=== PATIENT | female | born 1965 ===

== ENCOUNTER 2017-11-02 10:22 | Inpatient (IN) | payer OTHER ==
--- NOTE | 2017-11-02 10:50 | C.PDOC ---
History Of Present Illness <[place] - Last Filed: 11/02/17 11:08> <Josep Finney - Last Filed: 11/02/17 15:50> 52 y/o female with hx of chronic pain and substance abuse presenting via ems after patient was found down. 2 doses of narcan were given by ems. She is in ED reporting that 2 hours prior to arrival she took 3x 5/325mg percocet and 3x 2mg xanax. She is lethargic and does not communicate well but does follow directions and answers some questions. ([place]) <[place] - Last Filed: 11/02/17 11:08> <Josep Finney - Last Filed: 11/02/17 15:50> Time Seen by Provider: 11/02/17 10:26 Chief Complaint (Nursing): Substance Abuse Past Medical History - Medical History PMH: Anxiety, Arthritis, Asthma, Emphysema, HTN, Hypercholesterolemia, Hypothyroidism Family History: States: Unknown Family Hx - Social History Hx Tobacco Use: No Hx Alcohol Use: Yes (quit 2008) Hx Substance Use: Yes - Immunization History Hx Tetanus Toxoid Vaccination: No Hx Influenza Vaccination: Yes Hx Pneumococcal Vaccination: Yes <[place] - Last Filed: 11/02/17 11:08> Vital Signs: Last Vital Signs Temp 97.6 F 11/02/17 10:28 Pulse 93 H 11/02/17 12:52 Resp 10 L 11/02/17 12:52 BP 90/45 L 11/02/17 12:52 Pulse Ox 94 L 11/02/17 12:52 - [facility] Procedures CLOSED [ENDOSCOPIC] BIOPSY OF LARYNX (03/06/02) CONTINUOUS INVASIVE MECHANICAL VENTILATION <96 CONSEC HRS (05/03/15) INSERT ENDOTRACHEAL TUBE (05/03/15) Review Of Systems Review Of Systems: ROS cannot be obtained secondary to pt's inabilty to answer questions. (she is lethargic, difficult to arouse and does not cooperate with questioning) <[place] - Last Filed: 11/02/17 11:08> Physical Exam - Physical Exam Skin: Warm, Dry Head: Atraumatic, Normacephalic Eye(s): bilateral: Other (fixed miosis, not reactive to light) Throat: No Erythema, No Exudate Cardiovascular: Rhythm Regular, Murmur (+3 holosystolic) Respiratory: Normal Breath Sounds, Other (rapid breath) Gastrointestinal/Abdominal: Soft, No Tenderness Extremity: No Tenderness, No Pedal Edema, No Calf Tenderness Neurological/Psych: Other (lethargic) Gait: Unable To Assess <[place] - Last Filed: 11/02/17 11:08> ED Course And Treatment O2 Sat by Pulse Oximetry: 94 <[place] - Last Filed: 11/02/17 11:08> - Laboratory Results Result Diagrams: 11/02/17 11:40 11/02/17 11:40 <Josep Finney - Last Filed: 11/02/17 15:50> Central Line Placement - Central Line Placement Central Line Placement: Right: Femoral The Area Was Thoroughly Prepared With: Chlorhexidine Area Was Locally Anesthetized With: Lidocaine 1% Procedure: Triple Lumen, Placed Using Standard Seldinger Technique, Catheter Was Sewn Into Place, Sterile Dressing Placed Over Line, Procedure Tolerated Well <Josep iFnney - Last Filed: 11/02/17 15:50> Medical Decision Making <[place] - Last Filed: 11/02/17 11:08> <Josep Finney - Last Filed: 11/02/17 15:50> Medical Decision Making: Patient has a hx of substance abuse. CBC, CMP, JOSELYN, UA, UDS, CXR, EKG, acetominophen, and salicylate levels were ordered. EKG was NSR. Patient was hypotensive 70/40. 1L bolus NS was started. ([place]) Disposition - Disposition Disposition Time: 11:09 <[place] - Last Filed: 11/02/17 11:08> <Josep Finney - Last Filed: 11/02/17 15:50> - Disposition Condition: STABLE Forms: [facility] ([place]) - Clinical Impression Clinical Impression: Drug abuse
[2017-11-02] MEDS ORDERED: Sodium Chloride 0.9% 1,000 ML IV ONE (11:02)
[2017-11-02 11:06] VITALS: BMI 31.8
[2017-11-02] MEDS ORDERED: Sodium Chloride 0.9% 1,000 ML ONE (11:24)
[2017-11-02] MEDS ORDERED: Naloxone 0.4 mg/ml Inj (Adult) ONE ×2 (11:25→16:28)
[2017-11-02] MEDS ORDERED: Naloxone 0.4 mg/ml Inj (Adult) IVP ONE ×6 (11:30→19:59)
--- NOTE | 2017-11-02 11:33 | RAD ---
HISTORY: substance abuse od COMPARISON: Chest x-ray performed 11/02/15 TECHNIQUE: Chest, one view. FINDINGS: Examination limited by habitus and hypoinflation. LUNGS: Hypoinflation. No focal consolidation. Please note that chest x-ray has limited sensitivity for the detection of pulmonary masses. PLEURA: No significant pleural effusion identified. No definite pneumothorax . CARDIOVASCULAR: Heart size appears within normal limits. Prominence of the mediastinum may be exaggerated by patient obliquity and tortuous vasculature. OSSEOUS STRUCTURES: Degenerative changes. VISUALIZED UPPER ABDOMEN: Unremarkable. OTHER FINDINGS: None. IMPRESSION: Prominence of the mediastinum may be exaggerated by patient obliquity and tortuous vasculature. Hypoinflation.
[2017-11-02 11:45] LABS: BASO # 0.1 K/uL (0.0-0.2); BASO % 0.3 % (0.0-2.0); EOS % 0.1 % (0.0-4.0); LYMPH # 1.6 K/uL (1.0-4.3); LYMPH % 5.7 % (20.0-40.0); MEAN CORPUSCULAR HEMOGLOBIN 29.9 pg (27.0-31.0); MEAN CORPUSCULAR HGB CONC 32.6 g/dL (33.0-37.0); MEAN PLATELET VOLUME 9.5 fL (7.2-11.7); MONO # 1.5 K/uL (0.0-0.8); MONO % 5.4 % (0.0-10.0); NEUT # 24.6 K/uL (1.8-7.0); NEUT % 88.5 % (50.0-75.0); PLATELET COUNT 286 K/uL (130-400); RED CELL DISTRIBUTION WIDTH 14.9 % (11.5-14.5)
[2017-11-02 11:47] LABS: HEMOGLOBIN 11.7 g/dL (11.0-16.0); MEAN CELL VOLUME 91.9 fL (81.0-99.0); WHITE BLOOD COUNT 27.8 K/uL (4.8-10.8)
[2017-11-02 11:55] LABS: SALICYLATE < 1.0 mg/dL 1
[2017-11-02 12:11] LABS: CK-MB 0.89 ng/mL (0.0-3.38); TROPONIN I 0.031 ng/mL (0.00-0.120)
[2017-11-02 12:39] LABS: ALB/GLOB RATIO 1.1 (1.0-2.1); ALBUMIN 3.2 g/dL (3.5-5.0); CALCIUM 7.9 mg/dl (8.6-10.4)
[2017-11-02] MEDS ORDERED: Dextrose 50% SYRINGE Inj (50 ml) IV STA ×3 (12:39→15:02)
[2017-11-02] MEDS ORDERED: Dextrose 50% VIAL Inj (50 ml) IV ONE (12:42)
[2017-11-02 12:48] LABS: BANDS 5 % (0-2); LYMPHOCYTE 7 % (20-40); MONOCYTE 7 % (0-10); NEUTROPHIL 81 % (50-75); PLATELET ESTIMATE NORMAL (NORMAL); TOTAL CELLS COUNTED 100
[2017-11-02 12:49] LABS: ANISOCYTOSIS SLIGHT; HYPOCHROMIC SLIGHT; POIKILOCYTOSIS SLIGHT
[2017-11-02] MEDS ORDERED: Moxifloxacin IV 400mg/250ml NS 400 MG/250 ML BAG IVPB STA (13:59)
--- NOTE | 2017-11-02 15:03 | CT ---
PROCEDURE: CT HEAD WITHOUT CONTRAST. HISTORY: ams COMPARISON: Noncontrast head CT performed 08/07/15 TECHNIQUE: Axial computed tomography images were obtained through the head/brain without intravenous contrast. Radiation dose: Total exam DLP = 1604.17 mGy-cm. This CT exam was performed using one or more of the following dose reduction techniques: Automated exposure control, adjustment of the mA and/or kV according to patient size, and/or use of iterative reconstruction technique. FINDINGS: Streak artifact obscures evaluation of the skullbase. HEMORRHAGE: No intracranial hemorrhage. BRAIN: Diffuse atrophy with prominence of the ventricles and sulci noted. No mass effect or edema. The swann-white matter differentiation appears intact. VENTRICLES: No hydrocephalus. CALVARIUM: Unremarkable. PARANASAL SINUSES: Unremarkable as visualized. No significant inflammatory changes. MASTOID AIR CELLS: Unremarkable as visualized. No inflammatory changes. OTHER FINDINGS: None. IMPRESSION: Streak artifact obscures evaluation of the skullbase. No acute intracranial pathology identified.
[2017-11-02] MEDS ORDERED: Moxifloxacin IV 400mg/250ml NS 400 MG/250 ML BAG IVPB ONE (15:37)
[2017-11-02] MEDS ORDERED: Glucagon Recombinant 1 mg Inj IV STA (15:40)
[2017-11-02] MEDS ORDERED: Octreotide 500 mcg/ml Inj IV STA (15:40)
[2017-11-02 16:22] LABS: SQUAMOUS EPITHIAL < 1 /hpf (0-5); URINE BACTERIA MANY (<OCC); URINE BILIRUBIN NEGATIVE (NEGATIVE); URINE BLOOD NEGATIVE (NEGATIVE); URINE CLARITY Hazy (Clear); URINE COLOR Yellow (YELLOW); URINE GLUCOSE (UA) NORMAL (Normal); URINE LEUKOCYTE ESTERASE TRACE Leu/uL (Negative); URINE PROTEIN 2+ mg/dL (NEGATIVE); URINE UROBILINOGEN NORMAL mg/dL (0.2-1.0)
[2017-11-02 16:31] LABS: ARTERIAL BLOOD GAS HCO3 18.2 mmol/L (21-28); ARTERIAL BLOOD GAS O2 SAT 97.2 % (95-98); ARTERIAL BLOOD GAS PCO2 103 mm/Hg (35-45); ARTERIAL BLOOD GAS PO2 82 mm/Hg (80-100); ARTERIAL BLOOD GAS TCO2 28.6 mmol/L (22-28)
[2017-11-02 16:56] LABS: PROTHROMBIN TIME 11.4 SECONDS (9.7-12.2)
[2017-11-02 16:59] LABS: BARBITURATES, UR NEGATIVE (NEGATIVE); BENZODIAZEPINES, UR POSITIVE (NEGATIVE)
[2017-11-02 17:00] LABS: OPIATES, UR POSITIVE (NEGATIVE); PHENCYCLIDINE, UR NEGATIVE (NEGATIVE)
--- NOTE | 2017-11-02 17:35 | CARD ---
APPROVED REPORT EKG Measurement Heart [id number] OH 150P60 [id number] <Conclusion> Normal sinus rhythm Inferior infarct, age undetermined cannot be excluded Abnormal ECG
[2017-11-02] MEDS ORDERED: Sodium Chloride 0.9% 1,000 ML IV SCH ×2 (19:15→20:45)
--- NOTE | 2017-11-02 19:39 | CP.PCM.CON ---
History of Present Illness - History of Present Illness History of Present Illness: 52 y/o female with pmx of opoid overdose presents to [facility] in drowsy state. Patient had 0.4 mg of narcan pushed and patient woke up and requested to be go home. Patient reevalauted at 6:30PM and patient was found drowsy. Patient noted to have taken oxycodone. limited history. Review of Systems - Review of Systems Review of Systems: limited ROS as patient is drowsy Past Patient History - Tetanus Immunizations Tetanus Immunization: Unknown - Past Medical History & Family History Past Medical History?: Yes - Past Social History Smoking Status: Heavy Smoker > 10 Cigarettes Daily - CARDIAC Hx Hypercholesterolemia: Yes Hx Hypertension: Yes - PULMONARY Hx Asthma: Yes Hx Emphysema: Yes - ENDOCRINE/METABOLIC Hx Hypothyroidism: Yes - MUSCULOSKELETAL/RHEUMATOLOGICAL Hx Arthritis: Yes - PSYCHIATRIC Hx Anxiety: Yes Hx Substance Use: Yes - SURGICAL HISTORY Hx Surgeries: Yes Other/Comment: throat - ANESTHESIA Hx Anesthesia: Yes Hx Anesthesia Reactions: No (pt will not answer) Hx Malignant Hyperthermia: No Meds Allergies/Adverse Reactions: Allergies Allergy/AdvReac Type Severity Reaction Status Date / Time FISH Allergy Verified 11/02/15 10:58 NSAIDS (Non-Steroidal Allergy Verified 11/02/15 10:59 Anti-Inflamma Penicillins Allergy Verified 11/02/15 10:49 seafood Allergy Uncoded 11/02/15 10:59 shellfish Allergy Uncoded 11/02/15 10:59 vitamin d Allergy Uncoded 11/02/15 10:59 - Medications Medications: Current Medications Dextrose (Dextrose 5% In Water 1000 Ml) 1,000 mls @ 50 mls/hr IV .Q20H KATIE Sodium Chloride (Sodium Chloride 0.9%) 1,000 mls @ 50 mls/hr IV .Q20H KATIE Physical Exam - Head Exam Head Exam: ATRAUMATIC, NORMAL INSPECTION - Eye Exam Eye Exam: EOMI Pupil Exam: NORMAL ACCOMODATION - ENT Exam ENT Exam: Mucous Membranes Moist - Respiratory Exam Respiratory Exam: Clear to Auscultation Bilateral, NORMAL BREATHING PATTERN - Cardiovascular Exam Cardiovascular Exam: REGULAR RHYTHM, +S1, +S2, +S4 - GI/Abdominal Exam GI & Abdominal Exam: Normal Bowel Sounds, Soft - Extremities Exam Extremities exam: Positive for: normal inspection Results - Vital Signs Recent Vital Signs: Last Vital Signs Temp 97.7 F 11/02/17 18:50 Pulse 84 11/02/17 18:50 Resp 12 11/02/17 18:50 BP 105/59 L 11/02/17 18:50 Pulse Ox 94 L 11/02/17 18:50 - Labs Result Diagrams: 11/02/17 11:40 11/02/17 11:40 Labs: Laboratory Results - last 24 hr 11/02/17 11/02/17 11/02/17 10:42 11:40 11:40 WBC 27.8 H D RBC 3.90 Hgb 11.7 D Hct 35.9 MCV 91.9 D MCH 29.9 MCHC 32.6 L RDW 14.9 H Plt Count 286 MPV 9.5 Neut % (Auto) 88.5 H Lymph % (Auto) 5.7 L [place] % (Auto) 5.4 Eos % (Auto) 0.1 Baso % (Auto) 0.3 Neut # (Auto) 24.6 H Lymph # (Auto) 1.6 [place] # (Auto) 1.5 H Eos # (Auto) 0.0 Baso # (Auto) 0.1 Neutrophils % (Manual) 81 H Band Neutrophils % 5 H Lymphocytes % (Manual) 7 L Monocytes % (Manual) 7 Platelet Estimate Normal Hypochromasia (manual) Slight Poikilocytosis (manual Slight Anisocytosis (manual) Slight PT INR APTT Puncture Site pCO2 pO2 HCO3 ABG pH ABG Total CO2 ABG O2 Saturation ABG Base Excess Main Test ABG Potassium Glucose Lactate Liter Flow Crit Value Called To Crit Value Called By Crit Value Read Back Blood Gas Notified Time Sodium Potassium Chloride Carbon Dioxide Anion Gap BUN Creatinine Est GFR ( Amer) Est GFR (Non-Af Amer) POC Glucose (mg/dL) 247 H Random Glucose Lactic Acid Calcium Total Bilirubin AST ALT Alkaline Phosphatase Total Creatine Kinase CK-MB (Mass) Troponin I Total Protein Albumin Globulin Albumin/Globulin Ratio Arterial Blood Potassium Urine Color Urine Clarity Urine pH Ur Specific [place] Urine Protein Urine Glucose (UA) Urine Ketones Urine Blood Urine Nitrate Urine Bilirubin Urine Urobilinogen Ur Leukocyte Esterase Urine WBC (Auto) Urine RBC (Auto) Ur Squamous Epith Cells Urine Bacteria Hyaline Casts Salicylates < 1.0 Urine Opiates Screen Urine Methadone Screen Acetaminophen 12.0 Ur Barbiturates Screen Ur Phencyclidine Scrn Ur Amphetamines Screen U Benzodiazepines Scrn U Oth Cocaine Metabols U Cannabinoids Screen Alcohol, Quantitative 11/02/17 11/02/17 11/02/17 11:40 11:40 13:51 WBC RBC Hgb Hct MCV MCH MCHC RDW Plt Count MPV Neut % (Auto) Lymph % (Auto) [place] % (Auto) Eos % (Auto) Baso % (Auto) Neut # (Auto) Lymph # (Auto) [place] # (Auto) Eos # (Auto) Baso # (Auto) Neutrophils % (Manual) Band Neutrophils % Lymphocytes % (Manual) Monocytes % (Manual) Platelet Estimate Hypochromasia (manual) Poikilocytosis (manual Anisocytosis (manual) PT INR APTT Puncture Site pCO2 pO2 HCO3 ABG pH ABG Total CO2 ABG O2 Saturation ABG Base Excess Main Test ABG Potassium Glucose Lactate Liter Flow Crit Value Called To Crit Value Called By Crit Value Read Back Blood Gas Notified Time Sodium 144 Potassium 4.3 Chloride 110 H Carbon Dioxide 21 L Anion Gap 17 BUN 58 H Creatinine 3.1 H Est GFR ( Amer) 19 Est GFR (Non-Af Amer) 16 POC Glucose (mg/dL) 45 L Random Glucose 31 L* D Lactic Acid Calcium 7.9 L Total Bilirubin 0.2 AST 82 H ALT 50 Alkaline Phosphatase 82 Total Creatine Kinase 61 54 CK-MB (Mass) 0.89 Troponin I 0.0310 Total Protein 6.2 L Albumin 3.2 L Globulin 3.0 Albumin/Globulin Ratio 1.1 Arterial Blood Potassium Urine Color Urine Clarity Urine pH Ur Specific [place] Urine Protein Urine Glucose (UA) Urine Ketones Urine Blood Urine Nitrate Urine Bilirubin Urine Urobilinogen Ur Leukocyte Esterase Urine WBC (Auto) Urine RBC (Auto) Ur Squamous Epith Cells Urine Bacteria Hyaline Casts Salicylates Urine Opiates Screen Urine Methadone Screen Acetaminophen Ur Barbiturates Screen Ur Phencyclidine Scrn Ur Amphetamines Screen U Benzodiazepines Scrn U Oth Cocaine Metabols U Cannabinoids Screen Alcohol, Quantitative < 10 11/02/17 11/02/17 11/02/17 13:53 15:00 15:28 WBC RBC Hgb Hct MCV MCH MCHC RDW Plt Count MPV Neut % (Auto) Lymph % (Auto) [place] % (Auto) Eos % (Auto) Baso % (Auto) Neut # (Auto) Lymph # (Auto) [place] # (Auto) Eos # (Auto) Baso # (Auto) Neutrophils % (Manual) Band Neutrophils % Lymphocytes % (Manual) Monocytes % (Manual) Platelet Estimate Hypochromasia (manual) Poikilocytosis (manual Anisocytosis (manual) PT INR APTT Puncture Site pCO2 pO2 HCO3 ABG pH ABG Total CO2 ABG O2 Saturation ABG Base Excess Main Test ABG Potassium Glucose Lactate Liter Flow Crit Value Called To Crit Value Called By Crit Value Read Back Blood Gas Notified Time Sodium Potassium Chloride Carbon Dioxide Anion Gap BUN Creatinine Est GFR ( Amer) Est GFR (Non-Af Amer) POC Glucose (mg/dL) 50 L 69 Random Glucose Lactic Acid < 0.5 L Calcium Total Bilirubin AST ALT Alkaline Phosphatase Total Creatine Kinase CK-MB (Mass) Troponin I Total Protein Albumin Globulin Albumin/Globulin Ratio Arterial Blood Potassium Urine Color Urine Clarity Urine pH Ur Specific [place] Urine Protein Urine Glucose (UA) Urine Ketones Urine Blood Urine Nitrate Urine Bilirubin Urine Urobilinogen Ur Leukocyte Esterase Urine WBC (Auto) Urine RBC (Auto) Ur Squamous Epith Cells Urine Bacteria Hyaline Casts Salicylates Urine Opiates Screen Urine Methadone Screen Acetaminophen Ur Barbiturates Screen Ur Phencyclidine Scrn Ur Amphetamines Screen U Benzodiazepines Scrn U Oth Cocaine Metabols U Cannabinoids Screen Alcohol, Quantitative 11/02/17 11/02/17 11/02/17 16:03 16:03 16:10 WBC RBC Hgb Hct MCV MCH MCHC RDW Plt Count MPV Neut % (Auto) Lymph % (Auto) [place] % (Auto) Eos % (Auto) Baso % (Auto) Neut # (Auto) Lymph # (Auto) [place] # (Auto) Eos # (Auto) Baso # (Auto) Neutrophils % (Manual) Band Neutrophils % Lymphocytes % (Manual) Monocytes % (Manual) Platelet Estimate Hypochromasia (manual) Poikilocytosis (manual Anisocytosis (manual) PT INR APTT Puncture Site pCO2 pO2 HCO3 ABG pH ABG Total CO2 ABG O2 Saturation ABG Base Excess Main Test ABG Potassium Glucose Lactate Liter Flow Crit Value Called To Crit Value Called By Crit Value Read Back Blood Gas Notified Time Sodium Potassium Chloride Carbon Dioxide Anion Gap BUN Creatinine Est GFR ( Amer) Est GFR (Non-Af Amer) POC Glucose (mg/dL) 101 Random Glucose Lactic Acid Calcium Total Bilirubin AST ALT Alkaline Phosphatase Total Creatine Kinase CK-MB (Mass) Troponin I Total Protein Albumin Globulin Albumin/Globulin Ratio Arterial Blood Potassium Urine Color Yellow Urine Clarity Hazy Urine pH 5.0 Ur Specific [place] 1.017 Urine Protein 2+ H Urine Glucose (UA) Normal Urine Ketones Negative Urine Blood Negative Urine Nitrate Negative Urine Bilirubin Negative Urine Urobilinogen Normal Ur Leukocyte Esterase Trace Urine WBC (Auto) 25 H Urine RBC (Auto) 8 H Ur Squamous Epith Cells < 1 Urine Bacteria Many H Hyaline Casts 6-10 H Salicylates Urine Opiates Screen Positive H Urine Methadone Screen Negative Acetaminophen Ur Barbiturates Screen Negative Ur Phencyclidine Scrn Negative Ur Amphetamines Screen Negative U Benzodiazepines Scrn Positive H U Oth Cocaine Metabols Negative U Cannabinoids Screen Negative Alcohol, Quantitative 11/02/17 11/02/17 16:15 16:44 WBC RBC Hgb Hct MCV MCH MCHC RDW Plt Count MPV Neut % (Auto) Lymph % (Auto) [place] % (Auto) Eos % (Auto) Baso % (Auto) Neut # (Auto) Lymph # (Auto) [place] # (Auto) Eos # (Auto) Baso # (Auto) Neutrophils % (Manual) Band Neutrophils % Lymphocytes % (Manual) Monocytes % (Manual) Platelet Estimate Hypochromasia (manual) Poikilocytosis (manual Anisocytosis (manual) PT 11.4 INR 1.0 APTT 32 Puncture Site Lba pCO2 103 H* pO2 82 HCO3 18.2 L ABG pH 7.00 L* ABG Total CO2 28.6 H ABG O2 Saturation 97.2 ABG Base Excess -8.3 L Main Test N/a ABG Potassium 5.1 Glucose 115 H Lactate 0.6 L Liter Flow 4.0 Crit Value Called To [place] rn Crit Value Called By 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 vessel ordinary seaman Crit Value Read Back Y Blood Gas Notified Time 1630 Sodium 141.0 Potassium Chloride 111.0 H Carbon Dioxide Anion Gap BUN Creatinine Est GFR ( Amer) Est GFR (Non-Af Amer) POC Glucose (mg/dL) Random Glucose Lactic Acid Calcium Total Bilirubin AST ALT Alkaline Phosphatase Total Creatine Kinase CK-MB (Mass) Troponin I Total Protein Albumin Globulin Albumin/Globulin Ratio Arterial Blood Potassium 5.1 Urine Color Urine Clarity Urine pH Ur Specific [place] Urine Protein Urine Glucose (UA) Urine Ketones Urine Blood Urine Nitrate Urine Bilirubin Urine Urobilinogen Ur Leukocyte Esterase Urine WBC (Auto) Urine RBC (Auto) Ur Squamous Epith Cells Urine Bacteria Hyaline Casts Salicylates Urine Opiates Screen Urine Methadone Screen Acetaminophen Ur Barbiturates Screen Ur Phencyclidine Scrn Ur Amphetamines Screen U Benzodiazepines Scrn U Oth Cocaine Metabols U Cannabinoids Screen Alcohol, Quantitative Assessment & Plan - Assessment and Plan (Free Text) Assessment: opoid overdose: awakens to narcan push. Patient stated that she took oxycodone; however none taken since 9AM. This should ahve been metabolixe dout unless patient has constipation and has enterohepatic circulation. Patient will benefit from narcan ggt to keep RR >10 -COPD: continue bronchodilators -Sepsis: suspect 2nd aspiration, keep HOb >32, start vanco + zosyn -NPO -BGm q4hrs -IV D5NS -DVt/PUD ppx -CT head when able -utox, serum drug screen Patient will benefit from ICU level care. d/w nursing. f/u chemistry/mag/phos, serial lactic - Date & Time Date: 11/02/17 Time: 19:00
[2017-11-02 19:49] LABS: ARTERIAL BLOOD GAS HCO3 16.6 mmol/L (21-28); ARTERIAL BLOOD GAS O2 SAT 86.7 % (95-98); ARTERIAL BLOOD GAS PCO2 89 mm/Hg (35-45); ARTERIAL BLOOD GAS PH 7.03 (7.35-7.45); ARTERIAL BLOOD GAS PO2 45 mm/Hg (80-100); ARTERIAL BLOOD GAS TCO2 26.2 mmol/L (22-28)
[2017-11-02] MEDS ORDERED: DEXTROSE 5% IV SCH (20:00)
[2017-11-02] MEDS ORDERED: WATER IV SCH (20:00)
[2017-11-02] MEDS ORDERED: NALOXONE IV SCH (20:00)
[2017-11-02] MEDS ORDERED: Vancomycin 1 GM 1 GM/250 ML BAG IVPB STA (20:09)
[2017-11-02] MEDS ORDERED: Dextrose 5%/0.9% NS 1,000 ML IV ONE (20:15)
[2017-11-02 20:27] LABS: TROPONIN I 0.046 ng/mL (0.00-0.120)
--- NOTE | 2017-11-02 20:51 | CP.PCM.HP ---
History of Present Illness - History of Present Illness History of Present Illness: PGY1 H+P for Dr. Clifford History by patient's due to patient's mental status Patient is a 52 year old female with a past medical history of chronic pain, substance abuse, Anxiety, Arthritis, Asthma, Emphysema, HTN, Hypercholesterolemia and Hypothyroidism presenting to the emergency room after patient was found to not be breathing by her . Patient took her prescribed 3x 5/325mg percocet and 3x 2mg xanax this morning then went back to bed. When the went to wake patient up for her doctor's appointment, the found the patient with her tongue swallowed and starting to turn blue. The got a spoon and attempted to pull the tongue forward. He then called 911 and began to give rescue breaths. Upon arrival, ems gave patient 2 doses of narcan. Patient became slightly arousable but shortly fell back asleep. ROS is unattainable due to patient's mental status, currently only arousable to sternal rub. PMH: chronic pain, substance abuse, Anxiety, Arthritis, Asthma, Emphysema, HTN, Hypercholesterolemia and Hypothyroidism PSH: unknown Family: unknown Social: Per chart review, no tobacco, quit alcohol in 2008 Present on Admission - Present on Admission Any Indicators Present on Admission: No Review of Systems - Review of Systems Systems not reviewed;Unavailable: Altered Mental Status Past Patient History - Tetanus Immunizations Tetanus Immunization: Unknown - Past Medical History & Family History Past Medical History?: Yes - Past Social History Smoking Status: Former Smoker - CARDIAC Hx Hypercholesterolemia: Yes Hx Hypertension: Yes - PULMONARY Hx Asthma: Yes Hx Emphysema: Yes - ENDOCRINE/METABOLIC Hx Hypothyroidism: Yes - MUSCULOSKELETAL/RHEUMATOLOGICAL Hx Arthritis: Yes - PSYCHIATRIC Hx Substance Use: Yes - SURGICAL HISTORY Hx Surgeries: Yes Other/Comment: throat - ANESTHESIA Hx Anesthesia: Yes Hx Anesthesia Reactions: No (pt will not answer) Hx Malignant Hyperthermia: No Meds Allergies/Adverse Reactions: Allergies Allergy/AdvReac Type Severity Reaction Status Date / Time FISH Allergy Verified 11/02/15 10:58 NSAIDS (Non-Steroidal Allergy Verified 11/02/15 10:59 Anti-Inflamma Penicillins Allergy Verified 11/02/15 10:49 seafood Allergy Uncoded 11/02/15 10:59 shellfish Allergy Uncoded 11/02/15 10:59 vitamin d Allergy Uncoded 11/02/15 10:59 Physical Exam - Constitutional Appears: Confused, Other (Lethargic) - Head Exam Head Exam: ATRAUMATIC, NORMOCEPHALIC - Eye Exam Pupil Exam: Fixed, Miosis. absent: NORMAL ACCOMODATION, PERRL - Respiratory Exam Respiratory Exam: Clear to Auscultation Bilateral. absent: Accessory Muscle Use , Rales, Rhonchi, Wheezes, Respiratory Distress, NORMAL BREATHING PATTERN ( decreased resp rate) - Cardiovascular Exam Cardiovascular Exam: REGULAR RHYTHM, +S1, +S2, Systolic Murmur (holosystolic) - GI/Abdominal Exam GI & Abdominal Exam: Soft. absent: Distended, Firm, Guarding, Rigid - Extremities Exam Extremities exam: Positive for: pedal pulses present. Negative for: calf tenderness, pedal edema - Neurological Exam Neurological exam: Altered Additional comments: Lethargic. Only responsive to sternal rub. Patient quickly falls back asleep after sternal rub. - Skin Skin Exam: Dry, Warm Additional comments: no track romo seen. Results - Vital Signs Recent Vital Signs: Last Vital Signs Temp 97.5 F L 11/02/17 19:35 Pulse 77 11/02/17 19:35 Resp 16 11/02/17 20:15 BP 101/65 11/02/17 19:35 Pulse Ox 94 L 11/02/17 19:35 - Labs Result Diagrams: 11/02/17 11:40 11/02/17 11:40 Labs: Laboratory Results - last 24 hr 11/02/17 11/02/17 11/02/17 10:42 11:40 11:40 WBC 27.8 H D RBC 3.90 Hgb 11.7 D Hct 35.9 MCV 91.9 D MCH 29.9 MCHC 32.6 L RDW 14.9 H Plt Count 286 MPV 9.5 Neut % (Auto) 88.5 H Lymph % (Auto) 5.7 L Dade % (Auto) 5.4 Eos % (Auto) 0.1 Baso % (Auto) 0.3 Neut # (Auto) 24.6 H Lymph # (Auto) 1.6 Dade # (Auto) 1.5 H Eos # (Auto) 0.0 Baso # (Auto) 0.1 Neutrophils % (Manual) 81 H Band Neutrophils % 5 H Lymphocytes % (Manual) 7 L Monocytes % (Manual) 7 Platelet Estimate Normal Hypochromasia (manual) Slight Poikilocytosis (manual Slight Anisocytosis (manual) Slight PT INR APTT Puncture Site pCO2 pO2 HCO3 ABG pH ABG Total CO2 ABG O2 Saturation ABG Base Excess Main Test ABG Potassium Glucose Lactate Liter Flow Crit Value Called To Crit Value Called By Crit Value Read Back Blood Gas Notified Time Sodium Potassium Chloride Carbon Dioxide Anion Gap BUN Creatinine Est GFR ( Amer) Est GFR (Non-Af Amer) POC Glucose (mg/dL) 247 H Random Glucose Lactic Acid Calcium Total Bilirubin AST ALT Alkaline Phosphatase Ammonia Total Creatine Kinase CK-MB (Mass) Troponin I NT-Pro-B Natriuret Pep Total Protein Albumin Globulin Albumin/Globulin Ratio Arterial Blood Potassium Urine Color Urine Clarity Urine pH Ur Specific [place] Urine Protein Urine Glucose (UA) Urine Ketones Urine Blood Urine Nitrate Urine Bilirubin Urine Urobilinogen Ur Leukocyte Esterase Urine WBC (Auto) Urine RBC (Auto) Ur Squamous Epith Cells Urine Bacteria Hyaline Casts Salicylates < 1.0 Urine Opiates Screen Urine Methadone Screen Acetaminophen 12.0 Ur Barbiturates Screen Ur Phencyclidine Scrn Ur Amphetamines Screen U Benzodiazepines Scrn U Oth Cocaine Metabols U Cannabinoids Screen Alcohol, Quantitative 11/02/17 11/02/17 11/02/17 11:40 11:40 13:51 WBC RBC Hgb Hct MCV MCH MCHC RDW Plt Count MPV Neut % (Auto) Lymph % (Auto) Dade % (Auto) Eos % (Auto) Baso % (Auto) Neut # (Auto) Lymph # (Auto) Dade # (Auto) Eos # (Auto) Baso # (Auto) Neutrophils % (Manual) Band Neutrophils % Lymphocytes % (Manual) Monocytes % (Manual) Platelet Estimate Hypochromasia (manual) Poikilocytosis (manual Anisocytosis (manual) PT INR APTT Puncture Site pCO2 pO2 HCO3 ABG pH ABG Total CO2 ABG O2 Saturation ABG Base Excess Main Test ABG Potassium Glucose Lactate Liter Flow Crit Value Called To Crit Value Called By Crit Value Read Back Blood Gas Notified Time Sodium 144 Potassium 4.3 Chloride 110 H Carbon Dioxide 21 L Anion Gap 17 BUN 58 H Creatinine 3.1 H Est GFR ( Amer) 19 Est GFR (Non-Af Amer) 16 POC Glucose (mg/dL) 45 L Random Glucose 31 L* D Lactic Acid Calcium 7.9 L Total Bilirubin 0.2 AST 82 H ALT 50 Alkaline Phosphatase 82 Ammonia Total Creatine Kinase 61 54 CK-MB (Mass) 0.89 Troponin I 0.0310 NT-Pro-B Natriuret Pep Total Protein 6.2 L Albumin 3.2 L Globulin 3.0 Albumin/Globulin Ratio 1.1 Arterial Blood Potassium Urine Color Urine Clarity Urine pH Ur Specific [place] Urine Protein Urine Glucose (UA) Urine Ketones Urine Blood Urine Nitrate Urine Bilirubin Urine Urobilinogen Ur Leukocyte Esterase Urine WBC (Auto) Urine RBC (Auto) Ur Squamous Epith Cells Urine Bacteria Hyaline Casts Salicylates Urine Opiates Screen Urine Methadone Screen Acetaminophen Ur Barbiturates Screen Ur Phencyclidine Scrn Ur Amphetamines Screen U Benzodiazepines Scrn U Oth Cocaine Metabols U Cannabinoids Screen Alcohol, Quantitative < 10 11/02/17 11/02/17 11/02/17 13:53 15:00 15:28 WBC RBC Hgb Hct MCV MCH MCHC RDW Plt Count MPV Neut % (Auto) Lymph % (Auto) Dade % (Auto) Eos % (Auto) Baso % (Auto) Neut # (Auto) Lymph # (Auto) Dade # (Auto) Eos # (Auto) Baso # (Auto) Neutrophils % (Manual) Band Neutrophils % Lymphocytes % (Manual) Monocytes % (Manual) Platelet Estimate Hypochromasia (manual) Poikilocytosis (manual Anisocytosis (manual) PT INR APTT Puncture Site pCO2 pO2 HCO3 ABG pH ABG Total CO2 ABG O2 Saturation ABG Base Excess Main Test ABG Potassium Glucose Lactate Liter Flow Crit Value Called To Crit Value Called By Crit Value Read Back Blood Gas Notified Time Sodium Potassium Chloride Carbon Dioxide Anion Gap BUN Creatinine Est GFR ( Amer) Est GFR (Non-Af Amer) POC Glucose (mg/dL) 50 L 69 Random Glucose Lactic Acid < 0.5 L Calcium Total Bilirubin AST ALT Alkaline Phosphatase Ammonia Total Creatine Kinase CK-MB (Mass) Troponin I NT-Pro-B Natriuret Pep Total Protein Albumin Globulin Albumin/Globulin Ratio Arterial Blood Potassium Urine Color Urine Clarity Urine pH Ur Specific [place] Urine Protein Urine Glucose (UA) Urine Ketones Urine Blood Urine Nitrate Urine Bilirubin Urine Urobilinogen Ur Leukocyte Esterase Urine WBC (Auto) Urine RBC (Auto) Ur Squamous Epith Cells Urine Bacteria Hyaline Casts Salicylates Urine Opiates Screen Urine Methadone Screen Acetaminophen Ur Barbiturates Screen Ur Phencyclidine Scrn Ur Amphetamines Screen U Benzodiazepines Scrn U Oth Cocaine Metabols U Cannabinoids Screen Alcohol, Quantitative 11/02/17 11/02/17 11/02/17 16:03 16:03 16:10 WBC RBC Hgb Hct MCV MCH MCHC RDW Plt Count MPV Neut % (Auto) Lymph % (Auto) Dade % (Auto) Eos % (Auto) Baso % (Auto) Neut # (Auto) Lymph # (Auto) Dade # (Auto) Eos # (Auto) Baso # (Auto) Neutrophils % (Manual) Band Neutrophils % Lymphocytes % (Manual) Monocytes % (Manual) Platelet Estimate Hypochromasia (manual) Poikilocytosis (manual Anisocytosis (manual) PT INR APTT Puncture Site pCO2 pO2 HCO3 ABG pH ABG Total CO2 ABG O2 Saturation ABG Base Excess Main Test ABG Potassium Glucose Lactate Liter Flow Crit Value Called To Crit Value Called By Crit Value Read Back Blood Gas Notified Time Sodium Potassium Chloride Carbon Dioxide Anion Gap BUN Creatinine Est GFR ( Amer) Est GFR (Non-Af Amer) POC Glucose (mg/dL) 101 Random Glucose Lactic Acid Calcium Total Bilirubin AST ALT Alkaline Phosphatase Ammonia Total Creatine Kinase CK-MB (Mass) Troponin I NT-Pro-B Natriuret Pep Total Protein Albumin Globulin Albumin/Globulin Ratio Arterial Blood Potassium Urine Color Yellow Urine Clarity Hazy Urine pH 5.0 Ur Specific [place] 1.017 Urine Protein 2+ H Urine Glucose (UA) Normal Urine Ketones Negative Urine Blood Negative Urine Nitrate Negative Urine Bilirubin Negative Urine Urobilinogen Normal Ur Leukocyte Esterase Trace Urine WBC (Auto) 25 H Urine RBC (Auto) 8 H Ur Squamous Epith Cells < 1 Urine Bacteria Many H Hyaline Casts 6-10 H Salicylates Urine Opiates Screen Positive H Urine Methadone Screen Negative Acetaminophen Ur Barbiturates Screen Negative Ur Phencyclidine Scrn Negative Ur Amphetamines Screen Negative U Benzodiazepines Scrn Positive H U Oth Cocaine Metabols Negative U Cannabinoids Screen Negative Alcohol, Quantitative 11/02/17 11/02/17 11/02/17 16:15 16:44 19:45 WBC RBC Hgb Hct MCV MCH MCHC RDW Plt Count MPV Neut % (Auto) Lymph % (Auto) Dade % (Auto) Eos % (Auto) Baso % (Auto) Neut # (Auto) Lymph # (Auto) Dade # (Auto) Eos # (Auto) Baso # (Auto) Neutrophils % (Manual) Band Neutrophils % Lymphocytes % (Manual) Monocytes % (Manual) Platelet Estimate Hypochromasia (manual) Poikilocytosis (manual Anisocytosis (manual) PT 11.4 INR 1.0 APTT 32 Puncture Site Lba Rra pCO2 103 H* 89 H* pO2 82 45 L HCO3 18.2 L 16.6 L ABG pH 7.00 L* 7.03 L* ABG Total CO2 28.6 H 26.2 ABG O2 Saturation 97.2 86.7 L ABG Base Excess -8.3 L -9.2 L Main Test N/a Na ABG Potassium 5.1 7.1 H* Glucose 115 H 86 Lactate 0.6 L 0.4 L Liter Flow 4.0 2.0 Crit Value Called To Rica Portillo md icu Crit Value Called By 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 Crit Value Read Back Y Y Blood Gas Notified Time 1629 1947 Sodium 141.0 140.0 Potassium Chloride 111.0 H 111.0 H Carbon Dioxide Anion Gap BUN Creatinine Est GFR ( Amer) Est GFR (Non-Af Amer) POC Glucose (mg/dL) Random Glucose Lactic Acid Calcium Total Bilirubin AST ALT Alkaline Phosphatase Ammonia Total Creatine Kinase CK-MB (Mass) Troponin I NT-Pro-B Natriuret Pep Total Protein Albumin Globulin Albumin/Globulin Ratio Arterial Blood Potassium 5.1 7.1 H* Urine Color Urine Clarity Urine pH Ur Specific [place] Urine Protein Urine Glucose (UA) Urine Ketones Urine Blood Urine Nitrate Urine Bilirubin Urine Urobilinogen Ur Leukocyte Esterase Urine WBC (Auto) Urine RBC (Auto) Ur Squamous Epith Cells Urine Bacteria Hyaline Casts Salicylates Urine Opiates Screen Urine Methadone Screen Acetaminophen Ur Barbiturates Screen Ur Phencyclidine Scrn Ur Amphetamines Screen U Benzodiazepines Scrn U Oth Cocaine Metabols U Cannabinoids Screen Alcohol, Quantitative 11/02/17 11/02/17 20:01 20:01 WBC RBC Hgb Hct MCV MCH MCHC RDW Plt Count MPV Neut % (Auto) Lymph % (Auto) Dade % (Auto) Eos % (Auto) Baso % (Auto) Neut # (Auto) Lymph # (Auto) Dade # (Auto) Eos # (Auto) Baso # (Auto) Neutrophils % (Manual) Band Neutrophils % Lymphocytes % (Manual) Monocytes % (Manual) Platelet Estimate Hypochromasia (manual) Poikilocytosis (manual Anisocytosis (manual) PT INR APTT Puncture Site pCO2 pO2 HCO3 ABG pH ABG Total CO2 ABG O2 Saturation ABG Base Excess Main Test ABG Potassium Glucose Lactate Liter Flow Crit Value Called To Crit Value Called By Crit Value Read Back Blood Gas Notified Time Sodium Potassium Chloride Carbon Dioxide Anion Gap BUN Creatinine Est GFR ( Amer) Est GFR (Non-Af Amer) POC Glucose (mg/dL) Random Glucose Lactic Acid Calcium Total Bilirubin AST ALT Alkaline Phosphatase Ammonia 14 Total Creatine Kinase CK-MB (Mass) Troponin I 0.0460 NT-Pro-B Natriuret Pep 1740 H Total Protein Albumin Globulin Albumin/Globulin Ratio Arterial Blood Potassium Urine Color Urine Clarity Urine pH Ur Specific [place] Urine Protein Urine Glucose (UA) Urine Ketones Urine Blood Urine Nitrate Urine Bilirubin Urine Urobilinogen Ur Leukocyte Esterase Urine WBC (Auto) Urine RBC (Auto) Ur Squamous Epith Cells Urine Bacteria Hyaline Casts Salicylates Urine Opiates Screen Urine Methadone Screen Acetaminophen Ur Barbiturates Screen Ur Phencyclidine Scrn Ur Amphetamines Screen U Benzodiazepines Scrn U Oth Cocaine Metabols U Cannabinoids Screen Alcohol, Quantitative Assessment & Plan - Assessment and Plan (Free Text) Plan: Hypercapneic respriatory failure: Overdose - Opioids/Benzos ICU consulted, Dr. Mana Portillo - patient accepted to ICU Psych consulted, Dr. Schafer Per patient's , pt took 3x 5/325mg percocet and 3x 2mg xanax Patient received 2 doses of Narcan in the field - woke up then regressed to lethargy Patient received 2mg of Narcan in ED - woke up then regressed back to lethargy ABG pH 7.00, pCO2 103, pO2 82, HCO3 18.2, Lactate 0.6 Started on narcan ggt until oxycodone metabolized out Moxifloxacin 400mg IVPB daily NS @50ml/hr neurochecks Management per ICU Case discussed with Dr. Darrin Sharma Marce PGY1
[2017-11-02] MEDS ORDERED: Vancomycin 1 gm/NS 200 ml 1 GM/200 ML BAG IVPB ONE (21:00)
[2017-11-02] MEDS ORDERED: Moxifloxacin IV 400mg/250ml NS 400 MG/250 ML BAG IVPB SCH (21:00)
[2017-11-02] MEDS: Naloxone 4 MG in Sodium Chloride 0.9% 250 ML IV SCH (21:00)
[2017-11-03] MEDS: Naloxone 4 MG in Sodium Chloride 0.9% 250 ML IV SCH (06:00)
[2017-11-03 06:24] LABS: BASO % 0.2 % (0.0-2.0); HEMOGLOBIN 10.6 g/dL (11.0-16.0); LYMPH % 13.7 % (20.0-40.0); MEAN CELL VOLUME 92.3 fL (81.0-99.0); MEAN CORPUSCULAR HEMOGLOBIN 30.5 pg (27.0-31.0); MEAN CORPUSCULAR HGB CONC 33.1 g/dL (33.0-37.0); MEAN PLATELET VOLUME 10.3 fL (7.2-11.7); MONO # 0.7 K/uL (0.0-0.8); MONO % 4.9 % (0.0-10.0); NEUT % 81.2 % (50.0-75.0); NRBC % 0.1 % (0.0-2.0); RBC 3.47 Mil/uL (3.80-5.20); RED CELL DISTRIBUTION WIDTH 15.1 % (11.5-14.5); WHITE BLOOD COUNT 14.8 K/uL (4.8-10.8)
[2017-11-03 06:40] LABS: ALB/GLOB RATIO 0.9 (1.0-2.1); ALBUMIN 2.7 g/dL (3.5-5.0); CALCIUM 7.6 mg/dl (8.6-10.4)
[2017-11-03] MEDS ORDERED: Levothyroxine 25 MCG TAB PO SCH (09:15)
--- NOTE | 2017-11-03 14:06 | CP.CCUPN ---
<Lebron Mitchell - Last Filed: 11/03/17 14:13> CCU Subjective - Physician Review Subjective (Free Text): 11/03/17 14:05 Patient seen and examined at bedside. Per nursing no acute events occurred overnight. Critical Care Time Spent (in minutes): 45 CCU Objective - Vital Signs / Intake & Output Intake and Output (Last 8hrs): Intake & Output 11/02/17 11/03/17 11/03/17 22:59 06:59 14:59 Intake Total 1526 1329 350 Output Total 500 800 100 Balance 1026 529 250 Weight 180 lb Intake: IV 1000 Intake, IV Amount 526 1329 350 Right Distal Port Femoral 200 800 0 Right Femoral 26 129 0 Right Proximal Port 300 400 350 Femoral Output: Urine 500 800 100 Urethral ([place]) 200 800 100 Other: Voiding Method Indwelling Catheter - Physical Exam Head: Positive for: Atraumatic, Normocephalic Pupils: Positive for: PERRL Extroacular Muscles: Positive for: EOMI Conjunctiva: Positive for: Normal Mouth: Positive for: Moist Mucous Membranes Neck: Positive for: Normal Range of Motion Respiratory/Chest: Positive for: Clear to Auscultation, Good Air Exchange Cardiovascular: Positive for: Regular Rate and Rhythm, Normal S1, S2 Abdomen: Positive for: Normal Bowel Sounds Upper Extremity: Positive for: Normal Inspection Lower Extremity: Positive for: Normal Inspection Skin: Positive for: Dry, Normal Color - Medications Active Medications: Active Medications Generic Name Dose Route Start Last Admin Trade Name Freq PRN Reason Stop Dose Admin Heparin Sodium (Porcine) 5,000 units 11/03/17 22:00 Heparin SC Q12 KATIE Moxifloxacin HCl 400 mg in 250 mls @ 167 mls/hr 11/02/17 21:00 11/02/17 22:00 Avelox Iv 400mg/250ml Ns IVPB 167 mls/hr Q24H KATIE Administration Protocol Sodium Chloride 1,000 mls @ 50 mls/hr 11/02/17 20:45 11/02/17 21:00 Sodium Chloride 0.9% IV 50 mls/hr .Q20H KATIE Administration Levothyroxine Sodium 25 mcg 11/03/17 09:15 11/03/17 10:00 Synthroid PO 25 mcg 0630 KATIE Administration - Patient Studies Lab Studies: Microbiology Studies 11/02/17 16:16 Urine Culture - Preliminary Urine,Catheterized Gram Negative Sahil Lab Studies 11/03/17 11/03/17 11/03/17 Range/Units 12:00 06:20 06:19 WBC 14.8 H (4.8-10.8) K/uL RBC 3.47 L (3.80-5.20) Mil/uL Hgb 10.6 L (11.0-16.0) g/dL Hct 32.0 L (34.0-47.0) % MCV 92.3 (81.0-99.0) fL MCH 30.5 (27.0-31.0) pg MCHC 33.1 (33.0-37.0) g/dL RDW 15.1 H (11.5-14.5) % Plt Count 214 (130-400) K/uL MPV 10.3 (7.2-11.7) fL Neut % (Auto) 81.2 H (50.0-75.0) % Lymph % (Auto) 13.7 L (20.0-40.0) % [place] % (Auto) 4.9 (0.0-10.0) % Eos % (Auto) 0.0 (0.0-4.0) % Baso % (Auto) 0.2 (0.0-2.0) % Neut # (Auto) 12.0 H (1.8-7.0) K/uL Lymph # (Auto) 2.0 (1.0-4.3) K/uL [place] # (Auto) 0.7 (0.0-0.8) K/uL Eos # (Auto) 0.0 (0.0-0.7) K/uL Baso # (Auto) 0.0 (0.0-0.2) K/uL PT (9.7-12.2) SECONDS INR APTT (21-34) SECONDS Puncture Site pCO2 (35-45) mm/Hg pO2 (80-100) mm/Hg HCO3 (21-28) mmol/L ABG pH (7.35-7.45) ABG Total CO2 (22-28) mmol/L ABG O2 Saturation (95-98) % ABG Base Excess (-2.0-3.0) mmol/L Main Test ABG Potassium (3.6-5.2) mmol/L Sodium 144 (132-148) mmol/l Chloride 113 H (98-107) mmol/L Glucose (65-105) mg/dl Lactate (0.7-2.1) mmol/L Liter Flow Crit Value Called To Crit Value Called By Crit Value Read Back Blood Gas Notified Time Potassium 4.9 (3.6-5.2) mmol/L Carbon Dioxide 22 (22-30) mmol/L Anion Gap 14 (10-20) BUN 52 H (7-17) mg/dL Creatinine 1.7 H (0.7-1.2) mg/dL Est GFR ( Amer) 38 Est GFR (Non-Af Amer) 32 POC Glucose (mg/dL) 94 (65-110) mg/dL Random Glucose 88 (65-105) mg/dL Lactic Acid (0.7-2.1) mmol/L Calcium 7.6 L (8.6-10.4) mg/dl Total Bilirubin 0.3 (0.2-1.3) mg/dL AST 57 H D (14-36) U/L ALT 54 H (9-52) U/L Alkaline Phosphatase 67 (38-126) U/L Ammonia (9-33) umol/L Troponin I (0.00-0.120) ng/mL NT-Pro-B Natriuret Pep (0-900) pg/mL Total Protein 5.6 L (6.3-8.3) g/dL Albumin 2.7 L (3.5-5.0) g/dL Globulin 2.9 (2.2-3.9) gm/dL Albumin/Globulin Ratio 0.9 L (1.0-2.1) TSH 3rd Generation (0.46-4.68) mIU/L Arterial Blood Potassium (3.6-5.2) mmol/L Urine Color (YELLOW) Urine Clarity (Clear) Urine pH (5.0-8.0) Ur Specific [place] (1.003-1.030) Urine Protein (NEGATIVE) mg/dL Urine Glucose (UA) (Normal) mg/dL Urine Ketones (NEGATIVE) mg/dL Urine Blood (NEGATIVE) Urine Nitrate (NEGATIVE) Urine Bilirubin (NEGATIVE) Urine Urobilinogen (0.2-1.0) mg/dL Ur Leukocyte Esterase (Negative) Cherie/uL Urine WBC (Auto) (0-5) /hpf Urine RBC (Auto) (0-3) /hpf Ur Squamous Epith Cells (0-5) /hpf Urine Bacteria (<OCC) Hyaline Casts (0-2) /lpf Urine Opiates Screen (NEGATIVE) Urine Methadone Screen (NEGATIVE) Ur Barbiturates Screen (NEGATIVE) Ur Phencyclidine Scrn (NEGATIVE) Ur Amphetamines Screen (NEGATIVE) U Benzodiazepines Scrn (NEGATIVE) U Oth Cocaine Metabols (NEGATIVE) U Cannabinoids Screen (NEGATIVE) 11/03/17 11/03/17 11/03/17 Range/Units 05:21 05:09 00:11 WBC (4.8-10.8) K/uL RBC (3.80-5.20) Mil/uL Hgb (11.0-16.0) g/dL Hct (34.0-47.0) % MCV (81.0-99.0) fL MCH (27.0-31.0) pg MCHC (33.0-37.0) g/dL RDW (11.5-14.5) % Plt Count (130-400) K/uL MPV (7.2-11.7) fL Neut % (Auto) (50.0-75.0) % Lymph % (Auto) (20.0-40.0) % [place] % (Auto) (0.0-10.0) % Eos % (Auto) (0.0-4.0) % Baso % (Auto) (0.0-2.0) % Neut # (Auto) (1.8-7.0) K/uL Lymph # (Auto) (1.0-4.3) K/uL [place] # (Auto) (0.0-0.8) K/uL Eos # (Auto) (0.0-0.7) K/uL Baso # (Auto) (0.0-0.2) K/uL PT (9.7-12.2) SECONDS INR APTT (21-34) SECONDS Puncture Site pCO2 (35-45) mm/Hg pO2 (80-100) mm/Hg HCO3 (21-28) mmol/L ABG pH (7.35-7.45) ABG Total CO2 (22-28) mmol/L ABG O2 Saturation (95-98) % ABG Base Excess (-2.0-3.0) mmol/L Main Test ABG Potassium (3.6-5.2) mmol/L Sodium (132-148) mmol/l Chloride (98-107) mmol/L Glucose (65-105) mg/dl Lactate (0.7-2.1) mmol/L Liter Flow Crit Value Called To Crit Value Called By Crit Value Read Back Blood Gas Notified Time Potassium (3.6-5.2) mmol/L Carbon Dioxide (22-30) mmol/L Anion Gap (10-20) BUN (7-17) mg/dL Creatinine (0.7-1.2) mg/dL Est GFR ( Amer) Est GFR (Non-Af Amer) POC Glucose (mg/dL) 91 126 H (65-110) mg/dL Random Glucose (65-105) mg/dL Lactic Acid 0.6 L (0.7-2.1) mmol/L Calcium (8.6-10.4) mg/dl Total Bilirubin (0.2-1.3) mg/dL AST (14-36) U/L ALT (9-52) U/L Alkaline Phosphatase (38-126) U/L Ammonia (9-33) umol/L Troponin I (0.00-0.120) ng/mL NT-Pro-B Natriuret Pep (0-900) pg/mL Total Protein (6.3-8.3) g/dL Albumin (3.5-5.0) g/dL Globulin (2.2-3.9) gm/dL Albumin/Globulin Ratio (1.0-2.1) TSH 3rd Generation (0.46-4.68) mIU/L Arterial Blood Potassium (3.6-5.2) mmol/L Urine Color (YELLOW) Urine Clarity (Clear) Urine pH (5.0-8.0) Ur Specific [place] (1.003-1.030) Urine Protein (NEGATIVE) mg/dL Urine Glucose (UA) (Normal) mg/dL Urine Ketones (NEGATIVE) mg/dL Urine Blood (NEGATIVE) Urine Nitrate (NEGATIVE) Urine Bilirubin (NEGATIVE) Urine Urobilinogen (0.2-1.0) mg/dL Ur Leukocyte Esterase (Negative) Cherie/uL Urine WBC (Auto) (0-5) /hpf Urine RBC (Auto) (0-3) /hpf Ur Squamous Epith Cells (0-5) /hpf Urine Bacteria (<OCC) Hyaline Casts (0-2) /lpf Urine Opiates Screen (NEGATIVE) Urine Methadone Screen (NEGATIVE) Ur Barbiturates Screen (NEGATIVE) Ur Phencyclidine Scrn (NEGATIVE) Ur Amphetamines Screen (NEGATIVE) U Benzodiazepines Scrn (NEGATIVE) U Oth Cocaine Metabols (NEGATIVE) U Cannabinoids Screen (NEGATIVE) 11/02/17 11/02/17 11/02/17 Range/Units 20:01 20:01 19:45 WBC (4.8-10.8) K/uL RBC (3.80-5.20) Mil/uL Hgb (11.0-16.0) g/dL Hct (34.0-47.0) % MCV (81.0-99.0) fL MCH (27.0-31.0) pg MCHC (33.0-37.0) g/dL RDW (11.5-14.5) % Plt Count (130-400) K/uL MPV (7.2-11.7) fL Neut % (Auto) (50.0-75.0) % Lymph % (Auto) (20.0-40.0) % [place] % (Auto) (0.0-10.0) % Eos % (Auto) (0.0-4.0) % Baso % (Auto) (0.0-2.0) % Neut # (Auto) (1.8-7.0) K/uL Lymph # (Auto) (1.0-4.3) K/uL [place] # (Auto) (0.0-0.8) K/uL Eos # (Auto) (0.0-0.7) K/uL Baso # (Auto) (0.0-0.2) K/uL PT (9.7-12.2) SECONDS INR APTT (21-34) SECONDS Puncture Site Rra pCO2 89 H* (35-45) mm/Hg pO2 45 L (80-100) mm/Hg HCO3 16.6 L (21-28) mmol/L ABG pH 7.03 L* (7.35-7.45) ABG Total CO2 26.2 (22-28) mmol/L ABG O2 Saturation 86.7 L (95-98) % ABG Base Excess -9.2 L (-2.0-3.0) mmol/L Main Test Na ABG Potassium 7.1 H* (3.6-5.2) mmol/L Sodium 140.0 (132-148) mmol/l Chloride 111.0 H (98-107) mmol/L Glucose 86 (65-105) mg/dl Lactate 0.4 L (0.7-2.1) mmol/L Liter Flow 2.0 Crit Value Called To [facility] [place] [facility] Crit Value Called By Jeo Crit Value Read Back Y Blood Gas Notified Time 1947 Potassium (3.6-5.2) mmol/L Carbon Dioxide (22-30) mmol/L Anion Gap (10-20) BUN (7-17) mg/dL Creatinine (0.7-1.2) mg/dL Est GFR ( Amer) Est GFR (Non-Af Amer) POC Glucose (mg/dL) (65-110) mg/dL Random Glucose (65-105) mg/dL Lactic Acid (0.7-2.1) mmol/L Calcium (8.6-10.4) mg/dl Total Bilirubin (0.2-1.3) mg/dL AST (14-36) U/L ALT (9-52) U/L Alkaline Phosphatase (38-126) U/L Ammonia 14 (9-33) umol/L Troponin I 0.0460 (0.00-0.120) ng/mL NT-Pro-B Natriuret Pep 1740 H (0-900) pg/mL Total Protein (6.3-8.3) g/dL Albumin (3.5-5.0) g/dL Globulin (2.2-3.9) gm/dL Albumin/Globulin Ratio (1.0-2.1) TSH 3rd Generation 1.37 (0.46-4.68) mIU/L Arterial Blood Potassium 7.1 H* (3.6-5.2) mmol/L Urine Color (YELLOW) Urine Clarity (Clear) Urine pH (5.0-8.0) Ur Specific [place] (1.003-1.030) Urine Protein (NEGATIVE) mg/dL Urine Glucose (UA) (Normal) mg/dL Urine Ketones (NEGATIVE) mg/dL Urine Blood (NEGATIVE) Urine Nitrate (NEGATIVE) Urine Bilirubin (NEGATIVE) Urine Urobilinogen (0.2-1.0) mg/dL Ur Leukocyte Esterase (Negative) Cherie/uL Urine WBC (Auto) (0-5) /hpf Urine RBC (Auto) (0-3) /hpf Ur Squamous Epith Cells (0-5) /hpf Urine Bacteria (<OCC) Hyaline Casts (0-2) /lpf Urine Opiates Screen (NEGATIVE) Urine Methadone Screen (NEGATIVE) Ur Barbiturates Screen (NEGATIVE) Ur Phencyclidine Scrn (NEGATIVE) Ur Amphetamines Screen (NEGATIVE) U Benzodiazepines Scrn (NEGATIVE) U Oth Cocaine Metabols (NEGATIVE) U Cannabinoids Screen (NEGATIVE) 11/02/17 11/02/17 11/02/17 Range/Units 17:06 16:44 16:15 WBC (4.8-10.8) K/uL RBC (3.80-5.20) Mil/uL Hgb (11.0-16.0) g/dL Hct (34.0-47.0) % MCV (81.0-99.0) fL MCH (27.0-31.0) pg MCHC (33.0-37.0) g/dL RDW (11.5-14.5) % Plt Count (130-400) K/uL MPV (7.2-11.7) fL Neut % (Auto) (50.0-75.0) % Lymph % (Auto) (20.0-40.0) % [place] % (Auto) (0.0-10.0) % Eos % (Auto) (0.0-4.0) % Baso % (Auto) (0.0-2.0) % Neut # (Auto) (1.8-7.0) K/uL Lymph # (Auto) (1.0-4.3) K/uL [place] # (Auto) (0.0-0.8) K/uL Eos # (Auto) (0.0-0.7) K/uL Baso # (Auto) (0.0-0.2) K/uL PT 11.4 (9.7-12.2) SECONDS INR 1.0 APTT 32 (21-34) SECONDS Puncture Site Lba pCO2 103 H* (35-45) mm/Hg pO2 82 (80-100) mm/Hg HCO3 18.2 L (21-28) mmol/L ABG pH 7.00 L* (7.35-7.45) ABG Total CO2 28.6 H (22-28) mmol/L ABG O2 Saturation 97.2 (95-98) % ABG Base Excess -8.3 L (-2.0-3.0) mmol/L Main Test N/a ABG Potassium 5.1 (3.6-5.2) mmol/L Sodium 141.0 (132-148) mmol/l Chloride 111.0 H (98-107) mmol/L Glucose 115 H (65-105) mg/dl Lactate 0.6 L (0.7-2.1) mmol/L Liter Flow 4.0 Crit Value Called To [place] rn Crit Value Called By 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 Read Back Y Blood Gas Notified Time 1630 Potassium (3.6-5.2) mmol/L Carbon Dioxide (22-30) mmol/L Anion Gap (10-20) BUN (7-17) mg/dL Creatinine (0.7-1.2) mg/dL Est GFR ( Amer) Est GFR (Non-Af Amer) POC Glucose (mg/dL) 100 (65-110) mg/dL Random Glucose (65-105) mg/dL Lactic Acid (0.7-2.1) mmol/L Calcium (8.6-10.4) mg/dl Total Bilirubin (0.2-1.3) mg/dL AST (14-36) U/L ALT (9-52) U/L Alkaline Phosphatase (38-126) U/L Ammonia (9-33) umol/L Troponin I (0.00-0.120) ng/mL NT-Pro-B Natriuret Pep (0-900) pg/mL Total Protein (6.3-8.3) g/dL Albumin (3.5-5.0) g/dL Globulin (2.2-3.9) gm/dL Albumin/Globulin Ratio (1.0-2.1) TSH 3rd Generation (0.46-4.68) mIU/L Arterial Blood Potassium 5.1 (3.6-5.2) mmol/L Urine Color (YELLOW) Urine Clarity (Clear) Urine pH (5.0-8.0) Ur Specific [place] (1.003-1.030) Urine Protein (NEGATIVE) mg/dL Urine Glucose (UA) (Normal) mg/dL Urine Ketones (NEGATIVE) mg/dL Urine Blood (NEGATIVE) Urine Nitrate (NEGATIVE) Urine Bilirubin (NEGATIVE) Urine Urobilinogen (0.2-1.0) mg/dL Ur Leukocyte Esterase (Negative) Cherie/uL Urine WBC (Auto) (0-5) /hpf Urine RBC (Auto) (0-3) /hpf Ur Squamous Epith Cells (0-5) /hpf Urine Bacteria (<OCC) Hyaline Casts (0-2) /lpf Urine Opiates Screen (NEGATIVE) Urine Methadone Screen (NEGATIVE) Ur Barbiturates Screen (NEGATIVE) Ur Phencyclidine Scrn (NEGATIVE) Ur Amphetamines Screen (NEGATIVE) U Benzodiazepines Scrn (NEGATIVE) U Oth Cocaine Metabols (NEGATIVE) U Cannabinoids Screen (NEGATIVE) 11/02/17 11/02/17 11/02/17 Range/Units 16:10 16:03 16:03 WBC (4.8-10.8) K/uL RBC (3.80-5.20) Mil/uL Hgb (11.0-16.0) g/dL Hct (34.0-47.0) % MCV (81.0-99.0) fL MCH (27.0-31.0) pg MCHC (33.0-37.0) g/dL RDW (11.5-14.5) % Plt Count (130-400) K/uL MPV (7.2-11.7) fL Neut % (Auto) (50.0-75.0) % Lymph % (Auto) (20.0-40.0) % [place] % (Auto) (0.0-10.0) % Eos % (Auto) (0.0-4.0) % Baso % (Auto) (0.0-2.0) % Neut # (Auto) (1.8-7.0) K/uL Lymph # (Auto) (1.0-4.3) K/uL [place] # (Auto) (0.0-0.8) K/uL Eos # (Auto) (0.0-0.7) K/uL Baso # (Auto) (0.0-0.2) K/uL PT (9.7-12.2) SECONDS INR APTT (21-34) SECONDS Puncture Site pCO2 (35-45) mm/Hg pO2 (80-100) mm/Hg HCO3 (21-28) mmol/L ABG pH (7.35-7.45) ABG Total CO2 (22-28) mmol/L ABG O2 Saturation (95-98) % ABG Base Excess (-2.0-3.0) mmol/L Main Test ABG Potassium (3.6-5.2) mmol/L Sodium (132-148) mmol/l Chloride (98-107) mmol/L Glucose (65-105) mg/dl Lactate (0.7-2.1) mmol/L Liter Flow Crit Value Called To Crit Value Called By Crit Value Read Back Blood Gas Notified Time Potassium (3.6-5.2) mmol/L Carbon Dioxide (22-30) mmol/L Anion Gap (10-20) BUN (7-17) mg/dL Creatinine (0.7-1.2) mg/dL Est GFR ( Amer) Est GFR (Non-Af Amer) POC Glucose (mg/dL) 101 (65-110) mg/dL Random Glucose (65-105) mg/dL Lactic Acid (0.7-2.1) mmol/L Calcium (8.6-10.4) mg/dl Total Bilirubin (0.2-1.3) mg/dL AST (14-36) U/L ALT (9-52) U/L Alkaline Phosphatase (38-126) U/L Ammonia (9-33) umol/L Troponin I (0.00-0.120) ng/mL NT-Pro-B Natriuret Pep (0-900) pg/mL Total Protein (6.3-8.3) g/dL Albumin (3.5-5.0) g/dL Globulin (2.2-3.9) gm/dL Albumin/Globulin Ratio (1.0-2.1) TSH 3rd Generation (0.46-4.68) mIU/L Arterial Blood Potassium (3.6-5.2) mmol/L Urine Color Yellow (YELLOW) Urine Clarity Hazy (Clear) Urine pH 5.0 (5.0-8.0) Ur Specific [place] 1.017 (1.003-1.030) Urine Protein 2+ H (NEGATIVE) mg/dL Urine Glucose (UA) Normal (Normal) mg/dL Urine Ketones Negative (NEGATIVE) mg/dL Urine Blood Negative (NEGATIVE) Urine Nitrate Negative (NEGATIVE) Urine Bilirubin Negative (NEGATIVE) Urine Urobilinogen Normal (0.2-1.0) mg/dL Ur Leukocyte Esterase Trace (Negative) Cherie/uL Urine WBC (Auto) 25 H (0-5) /hpf Urine RBC (Auto) 8 H (0-3) /hpf Ur Squamous Epith Cells < 1 (0-5) /hpf Urine Bacteria Many H (<OCC) Hyaline Casts 6-10 H (0-2) /lpf Urine Opiates Screen Positive H (NEGATIVE) Urine Methadone Screen Negative (NEGATIVE) Ur Barbiturates Screen Negative (NEGATIVE) Ur Phencyclidine Scrn Negative (NEGATIVE) Ur Amphetamines Screen Negative (NEGATIVE) U Benzodiazepines Scrn Positive H (NEGATIVE) U Oth Cocaine Metabols Negative (NEGATIVE) U Cannabinoids Screen Negative (NEGATIVE) 11/02/17 11/02/17 Range/Units 15:28 15:00 WBC (4.8-10.8) K/uL RBC (3.80-5.20) Mil/uL Hgb (11.0-16.0) g/dL Hct (34.0-47.0) % MCV (81.0-99.0) fL MCH (27.0-31.0) pg MCHC (33.0-37.0) g/dL RDW (11.5-14.5) % Plt Count (130-400) K/uL MPV (7.2-11.7) fL Neut % (Auto) (50.0-75.0) % Lymph % (Auto) (20.0-40.0) % [place] % (Auto) (0.0-10.0) % Eos % (Auto) (0.0-4.0) % Baso % (Auto) (0.0-2.0) % Neut # (Auto) (1.8-7.0) K/uL Lymph # (Auto) (1.0-4.3) K/uL [place] # (Auto) (0.0-0.8) K/uL Eos # (Auto) (0.0-0.7) K/uL Baso # (Auto) (0.0-0.2) K/uL PT (9.7-12.2) SECONDS INR APTT (21-34) SECONDS Puncture Site pCO2 (35-45) mm/Hg pO2 (80-100) mm/Hg HCO3 (21-28) mmol/L ABG pH (7.35-7.45) ABG Total CO2 (22-28) mmol/L ABG O2 Saturation (95-98) % ABG Base Excess (-2.0-3.0) mmol/L Main Test ABG Potassium (3.6-5.2) mmol/L Sodium (132-148) mmol/l Chloride (98-107) mmol/L Glucose (65-105) mg/dl Lactate (0.7-2.1) mmol/L Liter Flow Crit Value Called To Crit Value Called By Crit Value Read Back Blood Gas Notified Time Potassium (3.6-5.2) mmol/L Carbon Dioxide (22-30) mmol/L Anion Gap (10-20) BUN (7-17) mg/dL Creatinine (0.7-1.2) mg/dL Est GFR ( Amer) Est GFR (Non-Af Amer) POC Glucose (mg/dL) 69 (65-110) mg/dL Random Glucose (65-105) mg/dL Lactic Acid < 0.5 L (0.7-2.1) mmol/L Calcium (8.6-10.4) mg/dl Total Bilirubin (0.2-1.3) mg/dL AST (14-36) U/L ALT (9-52) U/L Alkaline Phosphatase (38-126) U/L Ammonia (9-33) umol/L Troponin I (0.00-0.120) ng/mL NT-Pro-B Natriuret Pep (0-900) pg/mL Total Protein (6.3-8.3) g/dL Albumin (3.5-5.0) g/dL Globulin (2.2-3.9) gm/dL Albumin/Globulin Ratio (1.0-2.1) TSH 3rd Generation (0.46-4.68) mIU/L Arterial Blood Potassium (3.6-5.2) mmol/L Urine Color (YELLOW) Urine Clarity (Clear) Urine pH (5.0-8.0) Ur Specific [place] (1.003-1.030) Urine Protein (NEGATIVE) mg/dL Urine Glucose (UA) (Normal) mg/dL Urine Ketones (NEGATIVE) mg/dL Urine Blood (NEGATIVE) Urine Nitrate (NEGATIVE) Urine Bilirubin (NEGATIVE) Urine Urobilinogen (0.2-1.0) mg/dL Ur Leukocyte Esterase (Negative) Cherie/uL Urine WBC (Auto) (0-5) /hpf Urine RBC (Auto) (0-3) /hpf Ur Squamous Epith Cells (0-5) /hpf Urine Bacteria (<OCC) Hyaline Casts (0-2) /lpf Urine Opiates Screen (NEGATIVE) Urine Methadone Screen (NEGATIVE) Ur Barbiturates Screen (NEGATIVE) Ur Phencyclidine Scrn (NEGATIVE) Ur Amphetamines Screen (NEGATIVE) U Benzodiazepines Scrn (NEGATIVE) U Oth Cocaine Metabols (NEGATIVE) U Cannabinoids Screen (NEGATIVE) Laboratory Results - last 24 hr 11/02/17 11/02/17 11/02/17 15:00 15:28 16:03 WBC RBC Hgb Hct MCV MCH MCHC RDW Plt Count MPV Neut % (Auto) Lymph % (Auto) [place] % (Auto) Eos % (Auto) Baso % (Auto) Neut # (Auto) Lymph # (Auto) [place] # (Auto) Eos # (Auto) Baso # (Auto) PT INR APTT Puncture Site pCO2 pO2 HCO3 ABG pH ABG Total CO2 ABG O2 Saturation ABG Base Excess Main Test ABG Potassium Sodium Chloride Glucose Lactate Liter Flow Crit Value Called To Crit Value Called By Crit Value Read Back Blood Gas Notified Time Potassium Carbon Dioxide Anion Gap BUN Creatinine Est GFR ( Amer) Est GFR (Non-Af Amer) POC Glucose (mg/dL) 69 Random Glucose Lactic Acid < 0.5 L Calcium Total Bilirubin AST ALT Alkaline Phosphatase Ammonia Troponin I NT-Pro-B Natriuret Pep Total Protein Albumin Globulin Albumin/Globulin Ratio TSH 3rd Generation Arterial Blood Potassium Urine Color Urine Clarity Urine pH Ur Specific [place] Urine Protein Urine Glucose (UA) Urine Ketones Urine Blood Urine Nitrate Urine Bilirubin Urine Urobilinogen Ur Leukocyte Esterase Urine WBC (Auto) Urine RBC (Auto) Ur Squamous Epith Cells Urine Bacteria Hyaline Casts Urine Opiates Screen Positive H Urine Methadone Screen Negative Ur Barbiturates Screen Negative Ur Phencyclidine Scrn Negative Ur Amphetamines Screen Negative U Benzodiazepines Scrn Positive H U Oth Cocaine Metabols Negative U Cannabinoids Screen Negative 11/02/17 11/02/17 11/02/17 16:03 16:10 16:15 WBC RBC Hgb Hct MCV MCH MCHC RDW Plt Count MPV Neut % (Auto) Lymph % (Auto) [place] % (Auto) Eos % (Auto) Baso % (Auto) Neut # (Auto) Lymph # (Auto) [place] # (Auto) Eos # (Auto) Baso # (Auto) PT INR APTT Puncture Site Lba pCO2 103 H* pO2 82 HCO3 18.2 L ABG pH 7.00 L* ABG Total CO2 28.6 H ABG O2 Saturation 97.2 ABG Base Excess -8.3 L Main Test N/a ABG Potassium 5.1 Sodium 141.0 Chloride 111.0 H Glucose 115 H Lactate 0.6 L Liter Flow 4.0 Crit Value Called To [place] rn Crit Value Called By 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 Read Back Y Blood Gas Notified Time 1630 Potassium Carbon Dioxide Anion Gap BUN Creatinine Est GFR ( Amer) Est GFR (Non-Af Amer) POC Glucose (mg/dL) 101 Random Glucose Lactic Acid Calcium Total Bilirubin AST ALT Alkaline Phosphatase Ammonia Troponin I NT-Pro-B Natriuret Pep Total Protein Albumin Globulin Albumin/Globulin Ratio TSH 3rd Generation Arterial Blood Potassium 5.1 Urine Color Yellow Urine Clarity Hazy Urine pH 5.0 Ur Specific [place] 1.017 Urine Protein 2+ H Urine Glucose (UA) Normal Urine Ketones Negative Urine Blood Negative Urine Nitrate Negative Urine Bilirubin Negative Urine Urobilinogen Normal Ur Leukocyte Esterase Trace Urine WBC (Auto) 25 H Urine RBC (Auto) 8 H Ur Squamous Epith Cells < 1 Urine Bacteria Many H Hyaline Casts 6-10 H Urine Opiates Screen Urine Methadone Screen Ur Barbiturates Screen Ur Phencyclidine Scrn Ur Amphetamines Screen U Benzodiazepines Scrn U Oth Cocaine Metabols U Cannabinoids Screen 11/02/17 11/02/17 11/02/17 16:44 17:06 19:45 WBC RBC Hgb Hct MCV MCH MCHC RDW Plt Count MPV Neut % (Auto) Lymph % (Auto) [place] % (Auto) Eos % (Auto) Baso % (Auto) Neut # (Auto) Lymph # (Auto) [place] # (Auto) Eos # (Auto) Baso # (Auto) PT 11.4 INR 1.0 APTT 32 Puncture Site Rra pCO2 89 H* pO2 45 L HCO3 16.6 L ABG pH 7.03 L* ABG Total CO2 26.2 ABG O2 Saturation 86.7 L ABG Base Excess -9.2 L Main Test Na ABG Potassium 7.1 H* Sodium 140.0 Chloride 111.0 H Glucose 86 Lactate 0.4 L Liter Flow 2.0 Crit Value Called To [place] icu Crit Value Called By Joe Crit Value Read Back Y Blood Gas Notified Time 1947 Potassium Carbon Dioxide Anion Gap BUN Creatinine Est GFR ( Amer) Est GFR (Non-Af Amer) POC Glucose (mg/dL) 100 Random Glucose Lactic Acid Calcium Total Bilirubin AST ALT Alkaline Phosphatase Ammonia Troponin I NT-Pro-B Natriuret Pep Total Protein Albumin Globulin Albumin/Globulin Ratio TSH 3rd Generation Arterial Blood Potassium 7.1 H* Urine Color Urine Clarity Urine pH Ur Specific [place] Urine Protein Urine Glucose (UA) Urine Ketones Urine Blood Urine Nitrate Urine Bilirubin Urine Urobilinogen Ur Leukocyte Esterase Urine WBC (Auto) Urine RBC (Auto) Ur Squamous Epith Cells Urine Bacteria Hyaline Casts Urine Opiates Screen Urine Methadone Screen Ur Barbiturates Screen Ur Phencyclidine Scrn Ur Amphetamines Screen U Benzodiazepines Scrn U Oth Cocaine Metabols U Cannabinoids Screen 11/02/17 11/02/17 11/03/17 20:01 20:01 00:11 WBC RBC Hgb Hct MCV MCH MCHC RDW Plt Count MPV Neut % (Auto) Lymph % (Auto) [place] % (Auto) Eos % (Auto) Baso % (Auto) Neut # (Auto) Lymph # (Auto) [place] # (Auto) Eos # (Auto) Baso # (Auto) PT INR APTT Puncture Site pCO2 pO2 HCO3 ABG pH ABG Total CO2 ABG O2 Saturation ABG Base Excess Main Test ABG Potassium Sodium Chloride Glucose Lactate Liter Flow Crit Value Called To Crit Value Called By Crit Value Read Back Blood Gas Notified Time Potassium Carbon Dioxide Anion Gap BUN Creatinine Est GFR ( Amer) Est GFR (Non-Af Amer) POC Glucose (mg/dL) 126 H Random Glucose Lactic Acid Calcium Total Bilirubin AST ALT Alkaline Phosphatase Ammonia 14 Troponin I 0.0460 NT-Pro-B Natriuret Pep 1740 H Total Protein Albumin Globulin Albumin/Globulin Ratio TSH 3rd Generation 1.37 Arterial Blood Potassium Urine Color Urine Clarity Urine pH Ur Specific [place] Urine Protein Urine Glucose (UA) Urine Ketones Urine Blood Urine Nitrate Urine Bilirubin Urine Urobilinogen Ur Leukocyte Esterase Urine WBC (Auto) Urine RBC (Auto) Ur Squamous Epith Cells Urine Bacteria Hyaline Casts Urine Opiates Screen Urine Methadone Screen Ur Barbiturates Screen Ur Phencyclidine Scrn Ur Amphetamines Screen U Benzodiazepines Scrn U Oth Cocaine Metabols U Cannabinoids Screen 11/03/17 11/03/17 11/03/17 05:09 05:21 06:19 WBC 14.8 H RBC 3.47 L Hgb 10.6 L Hct 32.0 L MCV 92.3 MCH 30.5 MCHC 33.1 RDW 15.1 H Plt Count 214 MPV 10.3 Neut % (Auto) 81.2 H Lymph % (Auto) 13.7 L [place] % (Auto) 4.9 Eos % (Auto) 0.0 Baso % (Auto) 0.2 Neut # (Auto) 12.0 H Lymph # (Auto) 2.0 [place] # (Auto) 0.7 Eos # (Auto) 0.0 Baso # (Auto) 0.0 PT INR APTT Puncture Site pCO2 pO2 HCO3 ABG pH ABG Total CO2 ABG O2 Saturation ABG Base Excess Main Test ABG Potassium Sodium Chloride Glucose Lactate Liter Flow Crit Value Called To Crit Value Called By Crit Value Read Back Blood Gas Notified Time Potassium Carbon Dioxide Anion Gap BUN Creatinine Est GFR ( Amer) Est GFR (Non-Af Amer) POC Glucose (mg/dL) 91 Random Glucose Lactic Acid 0.6 L Calcium Total Bilirubin AST ALT Alkaline Phosphatase Ammonia Troponin I NT-Pro-B Natriuret Pep Total Protein Albumin Globulin Albumin/Globulin Ratio TSH 3rd Generation Arterial Blood Potassium Urine Color Urine Clarity Urine pH Ur Specific [place] Urine Protein Urine Glucose (UA) Urine Ketones Urine Blood Urine Nitrate Urine Bilirubin Urine Urobilinogen Ur Leukocyte Esterase Urine WBC (Auto) Urine RBC (Auto) Ur Squamous Epith Cells Urine Bacteria Hyaline Casts Urine Opiates Screen Urine Methadone Screen Ur Barbiturates Screen Ur Phencyclidine Scrn Ur Amphetamines Screen U Benzodiazepines Scrn U Oth Cocaine Metabols U Cannabinoids Screen 11/03/17 11/03/17 06:20 12:00 WBC RBC Hgb Hct MCV MCH MCHC RDW Plt Count MPV Neut % (Auto) Lymph % (Auto) [place] % (Auto) Eos % (Auto) Baso % (Auto) Neut # (Auto) Lymph # (Auto) [place] # (Auto) Eos # (Auto) Baso # (Auto) PT INR APTT Puncture Site pCO2 pO2 HCO3 ABG pH ABG Total CO2 ABG O2 Saturation ABG Base Excess Main Test ABG Potassium Sodium 144 Chloride 113 H Glucose Lactate Liter Flow Crit Value Called To Crit Value Called By Crit Value Read Back Blood Gas Notified Time Potassium 4.9 Carbon Dioxide 22 Anion Gap 14 BUN 52 H Creatinine 1.7 H Est GFR ( Amer) 38 Est GFR (Non-Af Amer) 32 POC Glucose (mg/dL) 94 Random Glucose 88 Lactic Acid Calcium 7.6 L Total Bilirubin 0.3 AST 57 H D ALT 54 H Alkaline Phosphatase 67 Ammonia Troponin I NT-Pro-B Natriuret Pep Total Protein 5.6 L Albumin 2.7 L Globulin 2.9 Albumin/Globulin Ratio 0.9 L TSH 3rd Generation Arterial Blood Potassium Urine Color Urine Clarity Urine pH Ur Specific [place] Urine Protein Urine Glucose (UA) Urine Ketones Urine Blood Urine Nitrate Urine Bilirubin Urine Urobilinogen Ur Leukocyte Esterase Urine WBC (Auto) Urine RBC (Auto) Ur Squamous Epith Cells Urine Bacteria Hyaline Casts Urine Opiates Screen Urine Methadone Screen Ur Barbiturates Screen Ur Phencyclidine Scrn Ur Amphetamines Screen U Benzodiazepines Scrn U Oth Cocaine Metabols U Cannabinoids Screen Fingerstick Blood Sugar Results: 94 Review of Systems - Review of Systems Systems not reviewed;Unavailable: Intoxicated Critical Care Progress Note - Nutrition Nutrition: Nutrition Category Date Time Status Heart Healthy Diet [DIET] Diets 11/03/17 Breakfast Active Assessment/Plan - Assessment and Plan (Free Text) Assessment: 52 year old female with a past medical history of hypertension, asthma, emphysema, arthritis, anxiety, and chronic pain who was admitted to ICU after being unresponsive on [address]. Plan: Hypercapneic respriatory failure: Overdose - Opioids/Benzos ICU consulted, Dr. Mana Portillo - patient accepted to ICU Psych consulted, Dr. Gilmar doss's appreciated. Per patient's , pt took 3x 5/325mg percocet and 3x 2mg xanax Patient received 2 doses of Narcan in the field - woke up then regressed to lethargy Patient received 2mg of Narcan in ED - woke up then regressed back to lethargy ABG pH 7.00, pCO2 103, pO2 82, HCO3 18.2, Lactate 0.6 upon admission. NS @50ml/hr neurochecks Infectious Disease: Leukocytosis Urine culture prelim results: Gram negative rods. WBC 14.8 today. Patient remains afebrile. Continue Moxifloxacin 400mg Q24. Continue to monitor white count with serial CBC's. Endocrinology:h/o of Hypothryoidisim Levothyroxine 25mcg PO Daily PPX Heparin 5000 units q12 <Zoran Polk - Last Filed: 11/03/17 14:24> CCU Objective - Vital Signs / Intake & Output Intake and Output (Last 8hrs): Intake & Output 11/02/17 11/03/17 11/03/17 22:59 06:59 14:59 Intake Total 1526 1329 350 Output Total 500 800 100 Balance 1026 529 250 Weight 180 lb Intake: IV 1000 Intake, IV Amount 526 1329 350 Right Distal Port Femoral 200 800 0 Right Femoral 26 129 0 Right Proximal Port 300 400 350 Femoral Output: Urine 500 800 100 Urethral ([place]) 200 800 100 Other: Voiding Method Indwelling Catheter - Medications Active Medications: Active Medications Generic Name Dose Route Start Last Admin Trade Name Freq PRN Reason Stop Dose Admin Heparin Sodium (Porcine) 5,000 units 11/03/17 22:00 Heparin SC Q12 KATIE Moxifloxacin HCl 400 mg in 250 mls @ 167 mls/hr 11/02/17 21:00 11/02/17 22:00 Avelox Iv 400mg/250ml Ns IVPB 167 mls/hr Q24H KATIE Administration Protocol Sodium Chloride 1,000 mls @ 50 mls/hr 11/02/17 20:45 11/02/17 21:00 Sodium Chloride 0.9% IV 50 mls/hr .Q20H KATIE Administration Levothyroxine Sodium 25 mcg 11/03/17 09:15 11/03/17 10:00 Synthroid PO 25 mcg 0630 KATIE Administration - Patient Studies Lab Studies: Microbiology Studies 11/02/17 16:16 Urine Culture - Preliminary Urine,Catheterized Gram Negative Sahil Lab Studies 11/03/17 11/03/17 11/03/17 Range/Units 12:00 06:20 06:19 WBC 14.8 H (4.8-10.8) K/uL RBC 3.47 L (3.80-5.20) Mil/uL Hgb 10.6 L (11.0-16.0) g/dL Hct 32.0 L (34.0-47.0) % MCV 92.3 (81.0-99.0) fL MCH 30.5 (27.0-31.0) pg MCHC 33.1 (33.0-37.0) g/dL RDW 15.1 H (11.5-14.5) % Plt Count 214 (130-400) K/uL MPV 10.3 (7.2-11.7) fL Neut % (Auto) 81.2 H (50.0-75.0) % Lymph % (Auto) 13.7 L (20.0-40.0) % [place] % (Auto) 4.9 (0.0-10.0) % Eos % (Auto) 0.0 (0.0-4.0) % Baso % (Auto) 0.2 (0.0-2.0) % Neut # (Auto) 12.0 H (1.8-7.0) K/uL Lymph # (Auto) 2.0 (1.0-4.3) K/uL [place] # (Auto) 0.7 (0.0-0.8) K/uL Eos # (Auto) 0.0 (0.0-0.7) K/uL Baso # (Auto) 0.0 (0.0-0.2) K/uL PT (9.7-12.2) SECONDS INR APTT (21-34) SECONDS Puncture Site pCO2 (35-45) mm/Hg pO2 (80-100) mm/Hg HCO3 (21-28) mmol/L ABG pH (7.35-7.45) ABG Total CO2 (22-28) mmol/L ABG O2 Saturation (95-98) % ABG Base Excess (-2.0-3.0) mmol/L Main Test ABG Potassium (3.6-5.2) mmol/L Sodium 144 (132-148) mmol/l Chloride 113 H (98-107) mmol/L Glucose (65-105) mg/dl Lactate (0.7-2.1) mmol/L Liter Flow Crit Value Called To Crit Value Called By Crit Value Read Back Blood Gas Notified Time Potassium 4.9 (3.6-5.2) mmol/L Carbon Dioxide 22 (22-30) mmol/L Anion Gap 14 (10-20) BUN 52 H (7-17) mg/dL Creatinine 1.7 H (0.7-1.2) mg/dL Est GFR ( Amer) 38 Est GFR (Non-Af Amer) 32 POC Glucose (mg/dL) 94 (65-110) mg/dL Random Glucose 88 (65-105) mg/dL Lactic Acid (0.7-2.1) mmol/L Calcium 7.6 L (8.6-10.4) mg/dl Total Bilirubin 0.3 (0.2-1.3) mg/dL AST 57 H D (14-36) U/L ALT 54 H (9-52) U/L Alkaline Phosphatase 67 (38-126) U/L Ammonia (9-33) umol/L Troponin I (0.00-0.120) ng/mL NT-Pro-B Natriuret Pep (0-900) pg/mL Total Protein 5.6 L (6.3-8.3) g/dL Albumin 2.7 L (3.5-5.0) g/dL Globulin 2.9 (2.2-3.9) gm/dL Albumin/Globulin Ratio 0.9 L (1.0-2.1) TSH 3rd Generation (0.46-4.68) mIU/L Arterial Blood Potassium (3.6-5.2) mmol/L Urine Color (YELLOW) Urine Clarity (Clear) Urine pH (5.0-8.0) Ur Specific [place] (1.003-1.030) Urine Protein (NEGATIVE) mg/dL Urine Glucose (UA) (Normal) mg/dL Urine Ketones (NEGATIVE) mg/dL Urine Blood (NEGATIVE) Urine Nitrate (NEGATIVE) Urine Bilirubin (NEGATIVE) Urine Urobilinogen (0.2-1.0) mg/dL Ur Leukocyte Esterase (Negative) Cherie/uL Urine WBC (Auto) (0-5) /hpf Urine RBC (Auto) (0-3) /hpf Ur Squamous Epith Cells (0-5) /hpf Urine Bacteria (<OCC) Hyaline Casts (0-2) /lpf Urine Opiates Screen (NEGATIVE) Urine Methadone Screen (NEGATIVE) Ur Barbiturates Screen (NEGATIVE) Ur Phencyclidine Scrn (NEGATIVE) Ur Amphetamines Screen (NEGATIVE) U Benzodiazepines Scrn (NEGATIVE) U Oth Cocaine Metabols (NEGATIVE) U Cannabinoids Screen (NEGATIVE) 11/03/17 11/03/17 11/03/17 Range/Units 05:21 05:09 00:11 WBC (4.8-10.8) K/uL RBC (3.80-5.20) Mil/uL Hgb (11.0-16.0) g/dL Hct (34.0-47.0) % MCV (81.0-99.0) fL MCH (27.0-31.0) pg MCHC (33.0-37.0) g/dL RDW (11.5-14.5) % Plt Count (130-400) K/uL MPV (7.2-11.7) fL Neut % (Auto) (50.0-75.0) % Lymph % (Auto) (20.0-40.0) % [place] % (Auto) (0.0-10.0) % Eos % (Auto) (0.0-4.0) % Baso % (Auto) (0.0-2.0) % Neut # (Auto) (1.8-7.0) K/uL Lymph # (Auto) (1.0-4.3) K/uL [place] # (Auto) (0.0-0.8) K/uL Eos # (Auto) (0.0-0.7) K/uL Baso # (Auto) (0.0-0.2) K/uL PT (9.7-12.2) SECONDS INR APTT (21-34) SECONDS Puncture Site pCO2 (35-45) mm/Hg pO2 (80-100) mm/Hg HCO3 (21-28) mmol/L ABG pH (7.35-7.45) ABG Total CO2 (22-28) mmol/L ABG O2 Saturation (95-98) % ABG Base Excess (-2.0-3.0) mmol/L Main Test ABG Potassium (3.6-5.2) mmol/L Sodium (132-148) mmol/l Chloride (98-107) mmol/L Glucose (65-105) mg/dl Lactate (0.7-2.1) mmol/L Liter Flow Crit Value Called To Crit Value Called By Crit Value Read Back Blood Gas Notified Time Potassium (3.6-5.2) mmol/L Carbon Dioxide (22-30) mmol/L Anion Gap (10-20) BUN (7-17) mg/dL Creatinine (0.7-1.2) mg/dL Est GFR ( Amer) Est GFR (Non-Af Amer) POC Glucose (mg/dL) 91 126 H (65-110) mg/dL Random Glucose (65-105) mg/dL Lactic Acid 0.6 L (0.7-2.1) mmol/L Calcium (8.6-10.4) mg/dl Total Bilirubin (0.2-1.3) mg/dL AST (14-36) U/L ALT (9-52) U/L Alkaline Phosphatase (38-126) U/L Ammonia (9-33) umol/L Troponin I (0.00-0.120) ng/mL NT-Pro-B Natriuret Pep (0-900) pg/mL Total Protein (6.3-8.3) g/dL Albumin (3.5-5.0) g/dL Globulin (2.2-3.9) gm/dL Albumin/Globulin Ratio (1.0-2.1) TSH 3rd Generation (0.46-4.68) mIU/L Arterial Blood Potassium (3.6-5.2) mmol/L Urine Color (YELLOW) Urine Clarity (Clear) Urine pH (5.0-8.0) Ur Specific [place] (1.003-1.030) Urine Protein (NEGATIVE) mg/dL Urine Glucose (UA) (Normal) mg/dL Urine Ketones (NEGATIVE) mg/dL Urine Blood (NEGATIVE) Urine Nitrate (NEGATIVE) Urine Bilirubin (NEGATIVE) Urine Urobilinogen (0.2-1.0) mg/dL Ur Leukocyte Esterase (Negative) Cherie/uL Urine WBC (Auto) (0-5) /hpf Urine RBC (Auto) (0-3) /hpf Ur Squamous Epith Cells (0-5) /hpf Urine Bacteria (<OCC) Hyaline Casts (0-2) /lpf Urine Opiates Screen (NEGATIVE) Urine Methadone Screen (NEGATIVE) Ur Barbiturates Screen (NEGATIVE) Ur Phencyclidine Scrn (NEGATIVE) Ur Amphetamines Screen (NEGATIVE) U Benzodiazepines Scrn (NEGATIVE) U Oth Cocaine Metabols (NEGATIVE) U Cannabinoids Screen (NEGATIVE) 11/02/17 11/02/17 11/02/17 Range/Units 20:01 20:01 19:45 WBC (4.8-10.8) K/uL RBC (3.80-5.20) Mil/uL Hgb (11.0-16.0) g/dL Hct (34.0-47.0) % MCV (81.0-99.0) fL MCH (27.0-31.0) pg MCHC (33.0-37.0) g/dL RDW (11.5-14.5) % Plt Count (130-400) K/uL MPV (7.2-11.7) fL Neut % (Auto) (50.0-75.0) % Lymph % (Auto) (20.0-40.0) % [place] % (Auto) (0.0-10.0) % Eos % (Auto) (0.0-4.0) % Baso % (Auto) (0.0-2.0) % Neut # (Auto) (1.8-7.0) K/uL Lymph # (Auto) (1.0-4.3) K/uL [place] # (Auto) (0.0-0.8) K/uL Eos # (Auto) (0.0-0.7) K/uL Baso # (Auto) (0.0-0.2) K/uL PT (9.7-12.2) SECONDS INR APTT (21-34) SECONDS Puncture Site Rra pCO2 89 H* (35-45) mm/Hg pO2 45 L (80-100) mm/Hg HCO3 16.6 L (21-28) mmol/L ABG pH 7.03 L* (7.35-7.45) ABG Total CO2 26.2 (22-28) mmol/L ABG O2 Saturation 86.7 L (95-98) % ABG Base Excess -9.2 L (-2.0-3.0) mmol/L Main Test Na ABG Potassium 7.1 H* (3.6-5.2) mmol/L Sodium 140.0 (132-148) mmol/l Chloride 111.0 H (98-107) mmol/L Glucose 86 (65-105) mg/dl Lactate 0.4 L (0.7-2.1) mmol/L Liter Flow 2.0 Crit Value Called To [facility] [place] [facility] Crit Value Called By Joe Crit Value Read Back Y Blood Gas Notified Time 1947 Potassium (3.6-5.2) mmol/L Carbon Dioxide (22-30) mmol/L Anion Gap (10-20) BUN (7-17) mg/dL Creatinine (0.7-1.2) mg/dL Est GFR ( Amer) Est GFR (Non-Af Amer) POC Glucose (mg/dL) (65-110) mg/dL Random Glucose (65-105) mg/dL Lactic Acid (0.7-2.1) mmol/L Calcium (8.6-10.4) mg/dl Total Bilirubin (0.2-1.3) mg/dL AST (14-36) U/L ALT (9-52) U/L Alkaline Phosphatase (38-126) U/L Ammonia 14 (9-33) umol/L Troponin I 0.0460 (0.00-0.120) ng/mL NT-Pro-B Natriuret Pep 1740 H (0-900) pg/mL Total Protein (6.3-8.3) g/dL Albumin (3.5-5.0) g/dL Globulin (2.2-3.9) gm/dL Albumin/Globulin Ratio (1.0-2.1) TSH 3rd Generation 1.37 (0.46-4.68) mIU/L Arterial Blood Potassium 7.1 H* (3.6-5.2) mmol/L Urine Color (YELLOW) Urine Clarity (Clear) Urine pH (5.0-8.0) Ur Specific [place] (1.003-1.030) Urine Protein (NEGATIVE) mg/dL Urine Glucose (UA) (Normal) mg/dL Urine Ketones (NEGATIVE) mg/dL Urine Blood (NEGATIVE) Urine Nitrate (NEGATIVE) Urine Bilirubin (NEGATIVE) Urine Urobilinogen (0.2-1.0) mg/dL Ur Leukocyte Esterase (Negative) Cherie/uL Urine WBC (Auto) (0-5) /hpf Urine RBC (Auto) (0-3) /hpf Ur Squamous Epith Cells (0-5) /hpf Urine Bacteria (<OCC) Hyaline Casts (0-2) /lpf Urine Opiates Screen (NEGATIVE) Urine Methadone Screen (NEGATIVE) Ur Barbiturates Screen (NEGATIVE) Ur Phencyclidine Scrn (NEGATIVE) Ur Amphetamines Screen (NEGATIVE) U Benzodiazepines Scrn (NEGATIVE) U Oth Cocaine Metabols (NEGATIVE) U Cannabinoids Screen (NEGATIVE) 11/02/17 11/02/17 11/02/17 Range/Units 17:06 16:44 16:15 WBC (4.8-10.8) K/uL RBC (3.80-5.20) Mil/uL Hgb (11.0-16.0) g/dL Hct (34.0-47.0) % MCV (81.0-99.0) fL MCH (27.0-31.0) pg MCHC (33.0-37.0) g/dL RDW (11.5-14.5) % Plt Count (130-400) K/uL MPV (7.2-11.7) fL Neut % (Auto) (50.0-75.0) % Lymph % (Auto) (20.0-40.0) % [place] % (Auto) (0.0-10.0) % Eos % (Auto) (0.0-4.0) % Baso % (Auto) (0.0-2.0) % Neut # (Auto) (1.8-7.0) K/uL Lymph # (Auto) (1.0-4.3) K/uL [place] # (Auto) (0.0-0.8) K/uL Eos # (Auto) (0.0-0.7) K/uL Baso # (Auto) (0.0-0.2) K/uL PT 11.4 (9.7-12.2) SECONDS INR 1.0 APTT 32 (21-34) SECONDS Puncture Site Lba pCO2 103 H* (35-45) mm/Hg pO2 82 (80-100) mm/Hg HCO3 18.2 L (21-28) mmol/L ABG pH 7.00 L* (7.35-7.45) ABG Total CO2 28.6 H (22-28) mmol/L ABG O2 Saturation 97.2 (95-98) % ABG Base Excess -8.3 L (-2.0-3.0) mmol/L Main Test N/a ABG Potassium 5.1 (3.6-5.2) mmol/L Sodium 141.0 (132-148) mmol/l Chloride 111.0 H (98-107) mmol/L Glucose 115 H (65-105) mg/dl Lactate 0.6 L (0.7-2.1) mmol/L Liter Flow 4.0 Crit Value Called To [place] rn Crit Value Called By 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 Read Back Y Blood Gas Notified Time 1630 Potassium (3.6-5.2) mmol/L Carbon Dioxide (22-30) mmol/L Anion Gap (10-20) BUN (7-17) mg/dL Creatinine (0.7-1.2) mg/dL Est GFR ( Amer) Est GFR (Non-Af Amer) POC Glucose (mg/dL) 100 (65-110) mg/dL Random Glucose (65-105) mg/dL Lactic Acid (0.7-2.1) mmol/L Calcium (8.6-10.4) mg/dl Total Bilirubin (0.2-1.3) mg/dL AST (14-36) U/L ALT (9-52) U/L Alkaline Phosphatase (38-126) U/L Ammonia (9-33) umol/L Troponin I (0.00-0.120) ng/mL NT-Pro-B Natriuret Pep (0-900) pg/mL Total Protein (6.3-8.3) g/dL Albumin (3.5-5.0) g/dL Globulin (2.2-3.9) gm/dL Albumin/Globulin Ratio (1.0-2.1) TSH 3rd Generation (0.46-4.68) mIU/L Arterial Blood Potassium 5.1 (3.6-5.2) mmol/L Urine Color (YELLOW) Urine Clarity (Clear) Urine pH (5.0-8.0) Ur Specific [place] (1.003-1.030) Urine Protein (NEGATIVE) mg/dL Urine Glucose (UA) (Normal) mg/dL Urine Ketones (NEGATIVE) mg/dL Urine Blood (NEGATIVE) Urine Nitrate (NEGATIVE) Urine Bilirubin (NEGATIVE) Urine Urobilinogen (0.2-1.0) mg/dL Ur Leukocyte Esterase (Negative) Cherie/uL Urine WBC (Auto) (0-5) /hpf Urine RBC (Auto) (0-3) /hpf Ur Squamous Epith Cells (0-5) /hpf Urine Bacteria (<OCC) Hyaline Casts (0-2) /lpf Urine Opiates Screen (NEGATIVE) Urine Methadone Screen (NEGATIVE) Ur Barbiturates Screen (NEGATIVE) Ur Phencyclidine Scrn (NEGATIVE) Ur Amphetamines Screen (NEGATIVE) U Benzodiazepines Scrn (NEGATIVE) U Oth Cocaine Metabols (NEGATIVE) U Cannabinoids Screen (NEGATIVE) 11/02/17 11/02/17 11/02/17 Range/Units 16:10 16:03 16:03 WBC (4.8-10.8) K/uL RBC (3.80-5.20) Mil/uL Hgb (11.0-16.0) g/dL Hct (34.0-47.0) % MCV (81.0-99.0) fL MCH (27.0-31.0) pg MCHC (33.0-37.0) g/dL RDW (11.5-14.5) % Plt Count (130-400) K/uL MPV (7.2-11.7) fL Neut % (Auto) (50.0-75.0) % Lymph % (Auto) (20.0-40.0) % [place] % (Auto) (0.0-10.0) % Eos % (Auto) (0.0-4.0) % Baso % (Auto) (0.0-2.0) % Neut # (Auto) (1.8-7.0) K/uL Lymph # (Auto) (1.0-4.3) K/uL [place] # (Auto) (0.0-0.8) K/uL Eos # (Auto) (0.0-0.7) K/uL Baso # (Auto) (0.0-0.2) K/uL PT (9.7-12.2) SECONDS INR APTT (21-34) SECONDS Puncture Site pCO2 (35-45) mm/Hg pO2 (80-100) mm/Hg HCO3 (21-28) mmol/L ABG pH (7.35-7.45) ABG Total CO2 (22-28) mmol/L ABG O2 Saturation (95-98) % ABG Base Excess (-2.0-3.0) mmol/L Main Test ABG Potassium (3.6-5.2) mmol/L Sodium (132-148) mmol/l Chloride (98-107) mmol/L Glucose (65-105) mg/dl Lactate (0.7-2.1) mmol/L Liter Flow Crit Value Called To Crit Value Called By Crit Value Read Back Blood Gas Notified Time Potassium (3.6-5.2) mmol/L Carbon Dioxide (22-30) mmol/L Anion Gap (10-20) BUN (7-17) mg/dL Creatinine (0.7-1.2) mg/dL Est GFR ( Amer) Est GFR (Non-Af Amer) POC Glucose (mg/dL) 101 (65-110) mg/dL Random Glucose (65-105) mg/dL Lactic Acid (0.7-2.1) mmol/L Calcium (8.6-10.4) mg/dl Total Bilirubin (0.2-1.3) mg/dL AST (14-36) U/L ALT (9-52) U/L Alkaline Phosphatase (38-126) U/L Ammonia (9-33) umol/L Troponin I (0.00-0.120) ng/mL NT-Pro-B Natriuret Pep (0-900) pg/mL Total Protein (6.3-8.3) g/dL Albumin (3.5-5.0) g/dL Globulin (2.2-3.9) gm/dL Albumin/Globulin Ratio (1.0-2.1) TSH 3rd Generation (0.46-4.68) mIU/L Arterial Blood Potassium (3.6-5.2) mmol/L Urine Color Yellow (YELLOW) Urine Clarity Hazy (Clear) Urine pH 5.0 (5.0-8.0) Ur Specific [place] 1.017 (1.003-1.030) Urine Protein 2+ H (NEGATIVE) mg/dL Urine Glucose (UA) Normal (Normal) mg/dL Urine Ketones Negative (NEGATIVE) mg/dL Urine Blood Negative (NEGATIVE) Urine Nitrate Negative (NEGATIVE) Urine Bilirubin Negative (NEGATIVE) Urine Urobilinogen Normal (0.2-1.0) mg/dL Ur Leukocyte Esterase Trace (Negative) Cherie/uL Urine WBC (Auto) 25 H (0-5) /hpf Urine RBC (Auto) 8 H (0-3) /hpf Ur Squamous Epith Cells < 1 (0-5) /hpf Urine Bacteria Many H (<OCC) Hyaline Casts 6-10 H (0-2) /lpf Urine Opiates Screen Positive H (NEGATIVE) Urine Methadone Screen Negative (NEGATIVE) Ur Barbiturates Screen Negative (NEGATIVE) Ur Phencyclidine Scrn Negative (NEGATIVE) Ur Amphetamines Screen Negative (NEGATIVE) U Benzodiazepines Scrn Positive H (NEGATIVE) U Oth Cocaine Metabols Negative (NEGATIVE) U Cannabinoids Screen Negative (NEGATIVE) 11/02/17 11/02/17 Range/Units 15:28 15:00 WBC (4.8-10.8) K/uL RBC (3.80-5.20) Mil/uL Hgb (11.0-16.0) g/dL Hct (34.0-47.0) % MCV (81.0-99.0) fL MCH (27.0-31.0) pg MCHC (33.0-37.0) g/dL RDW (11.5-14.5) % Plt Count (130-400) K/uL MPV (7.2-11.7) fL Neut % (Auto) (50.0-75.0) % Lymph % (Auto) (20.0-40.0) % [place] % (Auto) (0.0-10.0) % Eos % (Auto) (0.0-4.0) % Baso % (Auto) (0.0-2.0) % Neut # (Auto) (1.8-7.0) K/uL Lymph # (Auto) (1.0-4.3) K/uL [place] # (Auto) (0.0-0.8) K/uL Eos # (Auto) (0.0-0.7) K/uL Baso # (Auto) (0.0-0.2) K/uL PT (9.7-12.2) SECONDS INR APTT (21-34) SECONDS Puncture Site pCO2 (35-45) mm/Hg pO2 (80-100) mm/Hg HCO3 (21-28) mmol/L ABG pH (7.35-7.45) ABG Total CO2 (22-28) mmol/L ABG O2 Saturation (95-98) % ABG Base Excess (-2.0-3.0) mmol/L Main Test ABG Potassium (3.6-5.2) mmol/L Sodium (132-148) mmol/l Chloride (98-107) mmol/L Glucose (65-105) mg/dl Lactate (0.7-2.1) mmol/L Liter Flow Crit Value Called To Crit Value Called By Crit Value Read Back Blood Gas Notified Time Potassium (3.6-5.2) mmol/L Carbon Dioxide (22-30) mmol/L Anion Gap (10-20) BUN (7-17) mg/dL Creatinine (0.7-1.2) mg/dL Est GFR ( Amer) Est GFR (Non-Af Amer) POC Glucose (mg/dL) 69 (65-110) mg/dL Random Glucose (65-105) mg/dL Lactic Acid < 0.5 L (0.7-2.1) mmol/L Calcium (8.6-10.4) mg/dl Total Bilirubin (0.2-1.3) mg/dL AST (14-36) U/L ALT (9-52) U/L Alkaline Phosphatase (38-126) U/L Ammonia (9-33) umol/L Troponin I (0.00-0.120) ng/mL NT-Pro-B Natriuret Pep (0-900) pg/mL Total Protein (6.3-8.3) g/dL Albumin (3.5-5.0) g/dL Globulin (2.2-3.9) gm/dL Albumin/Globulin Ratio (1.0-2.1) TSH 3rd Generation (0.46-4.68) mIU/L Arterial Blood Potassium (3.6-5.2) mmol/L Urine Color (YELLOW) Urine Clarity (Clear) Urine pH (5.0-8.0) Ur Specific [place] (1.003-1.030) Urine Protein (NEGATIVE) mg/dL Urine Glucose (UA) (Normal) mg/dL Urine Ketones (NEGATIVE) mg/dL Urine Blood (NEGATIVE) Urine Nitrate (NEGATIVE) Urine Bilirubin (NEGATIVE) Urine Urobilinogen (0.2-1.0) mg/dL Ur Leukocyte Esterase (Negative) Cherie/uL Urine WBC (Auto) (0-5) /hpf Urine RBC (Auto) (0-3) /hpf Ur Squamous Epith Cells (0-5) /hpf Urine Bacteria (<OCC) Hyaline Casts (0-2) /lpf Urine Opiates Screen (NEGATIVE) Urine Methadone Screen (NEGATIVE) Ur Barbiturates Screen (NEGATIVE) Ur Phencyclidine Scrn (NEGATIVE) Ur Amphetamines Screen (NEGATIVE) U Benzodiazepines Scrn (NEGATIVE) U Oth Cocaine Metabols (NEGATIVE) U Cannabinoids Screen (NEGATIVE) Laboratory Results - last 24 hr 11/02/17 11/02/17 11/02/17 15:00 15:28 16:03 WBC RBC Hgb Hct MCV MCH MCHC RDW Plt Count MPV Neut % (Auto) Lymph % (Auto) [place] % (Auto) Eos % (Auto) Baso % (Auto) Neut # (Auto) Lymph # (Auto) [place] # (Auto) Eos # (Auto) Baso # (Auto) PT INR APTT Puncture Site pCO2 pO2 HCO3 ABG pH ABG Total CO2 ABG O2 Saturation ABG Base Excess Main Test ABG Potassium Sodium Chloride Glucose Lactate Liter Flow Crit Value Called To Crit Value Called By Crit Value Read Back Blood Gas Notified Time Potassium Carbon Dioxide Anion Gap BUN Creatinine Est GFR ( Amer) Est GFR (Non-Af Amer) POC Glucose (mg/dL) 69 Random Glucose Lactic Acid < 0.5 L Calcium Total Bilirubin AST ALT Alkaline Phosphatase Ammonia Troponin I NT-Pro-B Natriuret Pep Total Protein Albumin Globulin Albumin/Globulin Ratio TSH 3rd Generation Arterial Blood Potassium Urine Color Urine Clarity Urine pH Ur Specific [place] Urine Protein Urine Glucose (UA) Urine Ketones Urine Blood Urine Nitrate Urine Bilirubin Urine Urobilinogen Ur Leukocyte Esterase Urine WBC (Auto) Urine RBC (Auto) Ur Squamous Epith Cells Urine Bacteria Hyaline Casts Urine Opiates Screen Positive H Urine Methadone Screen Negative Ur Barbiturates Screen Negative Ur Phencyclidine Scrn Negative Ur Amphetamines Screen Negative U Benzodiazepines Scrn Positive H U Oth Cocaine Metabols Negative U Cannabinoids Screen Negative 11/02/17 11/02/17 11/02/17 16:03 16:10 16:15 WBC RBC Hgb Hct MCV MCH MCHC RDW Plt Count MPV Neut % (Auto) Lymph % (Auto) [place] % (Auto) Eos % (Auto) Baso % (Auto) Neut # (Auto) Lymph # (Auto) [place] # (Auto) Eos # (Auto) Baso # (Auto) PT INR APTT Puncture Site Lba pCO2 103 H* pO2 82 HCO3 18.2 L ABG pH 7.00 L* ABG Total CO2 28.6 H ABG O2 Saturation 97.2 ABG Base Excess -8.3 L Main Test N/a ABG Potassium 5.1 Sodium 141.0 Chloride 111.0 H Glucose 115 H Lactate 0.6 L Liter Flow 4.0 Crit Value Called To [place] rn Crit Value Called By 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 Read Back Y Blood Gas Notified Time 1630 Potassium Carbon Dioxide Anion Gap BUN Creatinine Est GFR ( Amer) Est GFR (Non-Af Amer) POC Glucose (mg/dL) 101 Random Glucose Lactic Acid Calcium Total Bilirubin AST ALT Alkaline Phosphatase Ammonia Troponin I NT-Pro-B Natriuret Pep Total Protein Albumin Globulin Albumin/Globulin Ratio TSH 3rd Generation Arterial Blood Potassium 5.1 Urine Color Yellow Urine Clarity Hazy Urine pH 5.0 Ur Specific [place] 1.017 Urine Protein 2+ H Urine Glucose (UA) Normal Urine Ketones Negative Urine Blood Negative Urine Nitrate Negative Urine Bilirubin Negative Urine Urobilinogen Normal Ur Leukocyte Esterase Trace Urine WBC (Auto) 25 H Urine RBC (Auto) 8 H Ur Squamous Epith Cells < 1 Urine Bacteria Many H Hyaline Casts 6-10 H Urine Opiates Screen Urine Methadone Screen Ur Barbiturates Screen Ur Phencyclidine Scrn Ur Amphetamines Screen U Benzodiazepines Scrn U Oth Cocaine Metabols U Cannabinoids Screen 11/02/17 11/02/17 11/02/17 16:44 17:06 19:45 WBC RBC Hgb Hct MCV MCH MCHC RDW Plt Count MPV Neut % (Auto) Lymph % (Auto) [place] % (Auto) Eos % (Auto) Baso % (Auto) Neut # (Auto) Lymph # (Auto) [place] # (Auto) Eos # (Auto) Baso # (Auto) PT 11.4 INR 1.0 APTT 32 Puncture Site Rra pCO2 89 H* pO2 45 L HCO3 16.6 L ABG pH 7.03 L* ABG Total CO2 26.2 ABG O2 Saturation 86.7 L ABG Base Excess -9.2 L Main Test Na ABG Potassium 7.1 H* Sodium 140.0 Chloride 111.0 H Glucose 86 Lactate 0.4 L Liter Flow 2.0 Crit Value Called To [place] icu Crit Value Called By Joe Crit Value Read Back Y Blood Gas Notified Time 1947 Potassium Carbon Dioxide Anion Gap BUN Creatinine Est GFR ( Amer) Est GFR (Non-Af Amer) POC Glucose (mg/dL) 100 Random Glucose Lactic Acid Calcium Total Bilirubin AST ALT Alkaline Phosphatase Ammonia Troponin I NT-Pro-B Natriuret Pep Total Protein Albumin Globulin Albumin/Globulin Ratio TSH 3rd Generation Arterial Blood Potassium 7.1 H* Urine Color Urine Clarity Urine pH Ur Specific [place] Urine Protein Urine Glucose (UA) Urine Ketones Urine Blood Urine Nitrate Urine Bilirubin Urine Urobilinogen Ur Leukocyte Esterase Urine WBC (Auto) Urine RBC (Auto) Ur Squamous Epith Cells Urine Bacteria Hyaline Casts Urine Opiates Screen Urine Methadone Screen Ur Barbiturates Screen Ur Phencyclidine Scrn Ur Amphetamines Screen U Benzodiazepines Scrn U Oth Cocaine Metabols U Cannabinoids Screen 11/02/17 11/02/17 11/03/17 20:01 20:01 00:11 WBC RBC Hgb Hct MCV MCH MCHC RDW Plt Count MPV Neut % (Auto) Lymph % (Auto) [place] % (Auto) Eos % (Auto) Baso % (Auto) Neut # (Auto) Lymph # (Auto) [place] # (Auto) Eos # (Auto) Baso # (Auto) PT INR APTT Puncture Site pCO2 pO2 HCO3 ABG pH ABG Total CO2 ABG O2 Saturation ABG Base Excess Main Test ABG Potassium Sodium Chloride Glucose Lactate Liter Flow Crit Value Called To Crit Value Called By Crit Value Read Back Blood Gas Notified Time Potassium Carbon Dioxide Anion Gap BUN Creatinine Est GFR ( Amer) Est GFR (Non-Af Amer) POC Glucose (mg/dL) 126 H Random Glucose Lactic Acid Calcium Total Bilirubin AST ALT Alkaline Phosphatase Ammonia 14 Troponin I 0.0460 NT-Pro-B Natriuret Pep 1740 H Total Protein Albumin Globulin Albumin/Globulin Ratio TSH 3rd Generation 1.37 Arterial Blood Potassium Urine Color Urine Clarity Urine pH Ur Specific [place] Urine Protein Urine Glucose (UA) Urine Ketones Urine Blood Urine Nitrate Urine Bilirubin Urine Urobilinogen Ur Leukocyte Esterase Urine WBC (Auto) Urine RBC (Auto) Ur Squamous Epith Cells Urine Bacteria Hyaline Casts Urine Opiates Screen Urine Methadone Screen Ur Barbiturates Screen Ur Phencyclidine Scrn Ur Amphetamines Screen U Benzodiazepines Scrn U Oth Cocaine Metabols U Cannabinoids Screen 11/03/17 11/03/17 11/03/17 05:09 05:21 06:19 WBC 14.8 H RBC 3.47 L Hgb 10.6 L Hct 32.0 L MCV 92.3 MCH 30.5 MCHC 33.1 RDW 15.1 H Plt Count 214 MPV 10.3 Neut % (Auto) 81.2 H Lymph % (Auto) 13.7 L [place] % (Auto) 4.9 Eos % (Auto) 0.0 Baso % (Auto) 0.2 Neut # (Auto) 12.0 H Lymph # (Auto) 2.0 [place] # (Auto) 0.7 Eos # (Auto) 0.0 Baso # (Auto) 0.0 PT INR APTT Puncture Site pCO2 pO2 HCO3 ABG pH ABG Total CO2 ABG O2 Saturation ABG Base Excess Main Test ABG Potassium Sodium Chloride Glucose Lactate Liter Flow Crit Value Called To Crit Value Called By Crit Value Read Back Blood Gas Notified Time Potassium Carbon Dioxide Anion Gap BUN Creatinine Est GFR ( Amer) Est GFR (Non-Af Amer) POC Glucose (mg/dL) 91 Random Glucose Lactic Acid 0.6 L Calcium Total Bilirubin AST ALT Alkaline Phosphatase Ammonia Troponin I NT-Pro-B Natriuret Pep Total Protein Albumin Globulin Albumin/Globulin Ratio TSH 3rd Generation Arterial Blood Potassium Urine Color Urine Clarity Urine pH Ur Specific [place] Urine Protein Urine Glucose (UA) Urine Ketones Urine Blood Urine Nitrate Urine Bilirubin Urine Urobilinogen Ur Leukocyte Esterase Urine WBC (Auto) Urine RBC (Auto) Ur Squamous Epith Cells Urine Bacteria Hyaline Casts Urine Opiates Screen Urine Methadone Screen Ur Barbiturates Screen Ur Phencyclidine Scrn Ur Amphetamines Screen U Benzodiazepines Scrn U Oth Cocaine Metabols U Cannabinoids Screen 11/03/17 11/03/17 06:20 12:00 WBC RBC Hgb Hct MCV MCH MCHC RDW Plt Count MPV Neut % (Auto) Lymph % (Auto) [place] % (Auto) Eos % (Auto) Baso % (Auto) Neut # (Auto) Lymph # (Auto) [place] # (Auto) Eos # (Auto) Baso # (Auto) PT INR APTT Puncture Site pCO2 pO2 HCO3 ABG pH ABG Total CO2 ABG O2 Saturation ABG Base Excess Main Test ABG Potassium Sodium 144 Chloride 113 H Glucose Lactate Liter Flow Crit Value Called To Crit Value Called By Crit Value Read Back Blood Gas Notified Time Potassium 4.9 Carbon Dioxide 22 Anion Gap 14 BUN 52 H Creatinine 1.7 H Est GFR ( Amer) 38 Est GFR (Non-Af Amer) 32 POC Glucose (mg/dL) 94 Random Glucose 88 Lactic Acid Calcium 7.6 L Total Bilirubin 0.3 AST 57 H D ALT 54 H Alkaline Phosphatase 67 Ammonia Troponin I NT-Pro-B Natriuret Pep Total Protein 5.6 L Albumin 2.7 L Globulin 2.9 Albumin/Globulin Ratio 0.9 L TSH 3rd Generation Arterial Blood Potassium Urine Color Urine Clarity Urine pH Ur Specific [place] Urine Protein Urine Glucose (UA) Urine Ketones Urine Blood Urine Nitrate Urine Bilirubin Urine Urobilinogen Ur Leukocyte Esterase Urine WBC (Auto) Urine RBC (Auto) Ur Squamous Epith Cells Urine Bacteria Hyaline Casts Urine Opiates Screen Urine Methadone Screen Ur Barbiturates Screen Ur Phencyclidine Scrn Ur Amphetamines Screen U Benzodiazepines Scrn U Oth Cocaine Metabols U Cannabinoids Screen Critical Care Progress Note - Nutrition Nutrition: Nutrition Category Date Time Status Heart Healthy Diet [DIET] Diets 11/03/17 Breakfast Active Attending/Attestation - Attestation I have personally seen and examined this patient.: Yes I have fully participated in the care of the patient.: Yes I have reviewed all pertinent clinical information: Yes Notes (Text): 11/03/17 14:24 Today: Friday, November 03, 2017 The Patient was seen and examined at the bedside, Medical records reviewed, and management issues were discussed and formulated with the house staff. I have reviewed all the relevant clinical, laboratory, hemodynamic, radiographic data and medications Events reviewed Pain issues, skin care, head of the bed elevation, glycemic control were addressed. Agree with above resident's assessment and treatment plans of care as transcribed in Resident note.
--- NOTE | 2017-11-03 15:13 | PCM.PSYCH ---
Initial Psychiatric Evaluation - Initial Psychiatric Evaluation Type of Admission: Voluntary Legal Status: Capacity Chief Complaint (in patient's own words): I may had a seizure.' History of Present Illness and Precipitating Events: Patient is a 52 year old HF, with a past medical history of chronic pain, substance abuse, Anxiety, Arthritis, Asthma, Emphysema, HTN, Hypercholesterolemia and Hypothyroidism presenting to the emergency room after patient was found to not be breathing by her . Patient took her prescribed 3x 5/325mg percocet and 3x 2mg xanax this morning then went back to bed. When the went to wake patient up for her doctor's appointment, the found the patient with her tongue swallowed and starting to turn blue. The got a spoon and attempted to pull the tongue forward. He then called 911 and began to give rescue breaths. Upon arrival, ems gave patient 2 doses of narcan. Patient denies any past psychiatric history of any inpatient hospitalization, however she reports SEEING a psychiatrist, on out patient basis. She denies any depressive symptoms and denies any suicidal ideation or homicidal ideation. She denies any auditory or visual hallucinations. She also denies any past history of suicide attempts. Collateral obtained from the ., Tank [phone]. As per the , she has a history of multiple back injuries and anxiety, for which she has been prescribed Percocets and Xanax. As per him she is in a lot of pain and she cannot function. She has a nursing informatics specialist who comes home to take care of her. He also reports that she ambulate via wheel chair. states that she may had a seizure from Xanax. However he denies any suicidal ideation or suicide attempt. He also denies any possibility of drug overdose. PMH: chronic pain, substance abuse, Anxiety, Arthritis, Asthma, Emphysema, HTN, Hypercholesterolemia and Hypothyroidism PSH: unknown Family: unknown Social: Per chart review, no tobacco, quit alcohol in 2008 Current Medications: Active Medications Generic Name Dose Route Start Last Admin Trade Name Freq PRN Reason Stop Dose Admin Heparin Sodium (Porcine) 5,000 units 11/03/17 22:00 Heparin SC Q12 KATIE Moxifloxacin HCl 400 mg in 250 mls @ 167 mls/hr 11/02/17 21:00 11/02/17 22:00 Avelox Iv 400mg/250ml Ns IVPB 167 mls/hr Q24H KATIE Administration Protocol Sodium Chloride 1,000 mls @ 50 mls/hr 11/02/17 20:45 11/02/17 21:00 Sodium Chloride 0.9% IV 50 mls/hr .Q20H KATIE Administration Levothyroxine Sodium 25 mcg 11/03/17 09:15 11/03/17 10:00 Synthroid PO 25 mcg 0630 KATIE Administration Past Psychiatric History - Past Psychiatric History Previous Treatment History: None Pertinent Medical Hx (Current Medical&Sleep Prob, Allergies): Allergies Allergy/AdvReac Type Severity Reaction Status Date / Time FISH Allergy Verified 11/02/15 10:58 NSAIDS (Non-Steroidal Allergy Verified 11/02/15 10:59 Anti-Inflamma Penicillins Allergy Verified 11/02/15 10:49 seafood Allergy Uncoded 11/02/15 10:59 shellfish Allergy Uncoded 11/02/15 10:59 vitamin d Allergy Uncoded 11/02/15 10:59 Xanax 2 mg PO TID 11/02/15 Atorvastatin [Lipitor] 40 mg PO HS 11/02/17 Gabapentin [Neurontin] 1,200 mg PO HS 11/02/17 Gabapentin [Neurontin] 600 mg PO DAILY 11/02/17 Levothyroxine [Levoxyl] 0.025 mg PO DAILY 11/02/17 Ondansetron HCl [Zofran] 4 mg PO BID 11/02/17 Review of Systems - Review of Systems All systems: reviewed and no additional remarkable complaints except - Psychiatric Psychiatric: Anxiety, Irritability Mental Status Examination - Personal Presentation Personal Presentation: Looks stated age - Affect Affect: Constricted - Motor Activity Motor Activity: Calm - Reliability in Providing Information Reliability in Providing Information: Fair - Speech Speech: Organized - Mood Mood: Anxious - Formal Thought Process Formal Thought Process: No Impairment - Obsessions/Compulsions Obsessions: No Compulsions: No - Cognitive Functions Orientation: Person, Place, Situation, Time Sensorium: Alert Attention/Concentration: Attentive Abstract Thinking: [place] Estimate of Intelligence: Below average Judgement: Imparied, as evidence by: Poor judgement, Imparied, as evidence by: Lack of insight into illness - Risk Risk: Seizure, Withdrawal, Diminished functioning - Strength & Assets Inventory Strength & Assets Inventory: Family support DSM 5 DX - DSM 5 DSM 5 Diagnosis: Anxiety disorder Rule out opiate use disorder severe Rule out sedative/hypnotic use disorder severe - Recommended/Plan of Treatment Treatment Recommendations and Plan of Treatment: Patient psychiatric stable and clear for discharge. Patient to follow-up with her psychiatrist and medical doctor. - Smoking Cessation Smoking Cessation Initiated: No
[2017-11-03 18:13] VITALS: BP 112/54; PULSE 89; RESP 14; TEMP 98.5; O2SAT 97
--- NOTE | 2017-11-04 10:08 | CP.PCM.DIS ---
Provider - Provider Date of Admission: 11/02/17 16:37 Attending physician: Maynor Clifford Jr, MD Primary care physician: Darrin Consults: Reny Time Spent in preparation of Discharge (in minutes): 35 Hospital Course - Lab Results Lab Results: Micro Results 11/02/17 16:16 Urine,Catheterized Urine Culture - Final Klebsiella Pneumoniae Ssp Pneu 11/02/17 15:00 Blood Blood Culture - Preliminary NO GROWTH AFTER 24 HOURS 11/02/17 15:30 Blood Blood Culture - Preliminary NO GROWTH AFTER 24 HOURS Most Recent Lab Values WBC 14.8 K/uL (4.8-10.8) H 11/03/17 06:19 RBC 3.47 Mil/uL (3.80-5.20) L 11/03/17 06:19 Hgb 10.6 g/dL (11.0-16.0) L 11/03/17 06:19 Hct 32.0 % (34.0-47.0) L 11/03/17 06:19 MCV 92.3 fL (81.0-99.0) 11/03/17 06:19 MCH 30.5 pg (27.0-31.0) 11/03/17 06:19 MCHC 33.1 g/dL (33.0-37.0) 11/03/17 06:19 RDW 15.1 % (11.5-14.5) H 11/03/17 06:19 Plt Count 214 K/uL (130-400) 11/03/17 06:19 MPV 10.3 fL (7.2-11.7) 11/03/17 06:19 Neut % (Auto) 81.2 % (50.0-75.0) H 11/03/17 06:19 Lymph % (Auto) 13.7 % (20.0-40.0) L 11/03/17 06:19 [place] % (Auto) 4.9 % (0.0-10.0) 11/03/17 06:19 Eos % (Auto) 0.0 % (0.0-4.0) 11/03/17 06:19 Baso % (Auto) 0.2 % (0.0-2.0) 11/03/17 06:19 Neut # (Auto) 12.0 K/uL (1.8-7.0) H 11/03/17 06:19 Lymph # (Auto) 2.0 K/uL (1.0-4.3) 11/03/17 06:19 [place] # (Auto) 0.7 K/uL (0.0-0.8) 11/03/17 06:19 Eos # (Auto) 0.0 K/uL (0.0-0.7) 11/03/17 06:19 Baso # (Auto) 0.0 K/uL (0.0-0.2) 11/03/17 06:19 Neutrophils % (Manual) 81 % (50-75) H 11/02/17 11:40 Band Neutrophils % 5 % (0-2) H 11/02/17 11:40 Lymphocytes % (Manual) 7 % (20-40) L 11/02/17 11:40 Monocytes % (Manual) 7 % (0-10) 11/02/17 11:40 Platelet Estimate Normal (NORMAL) 11/02/17 11:40 Hypochromasia (manual) Slight 11/02/17 11:40 Poikilocytosis (manual Slight 11/02/17 11:40 Anisocytosis (manual) Slight 11/02/17 11:40 PT 11.4 SECONDS (9.7-12.2) 11/02/17 16:44 INR 1.0 11/02/17 16:44 APTT 32 SECONDS (21-34) 11/02/17 16:44 Puncture Site Rra 11/02/17 19:45 pCO2 89 mm/Hg (35-45) H* 11/02/17 19:45 pO2 45 mm/Hg (80-100) L 11/02/17 19:45 HCO3 16.6 mmol/L (21-28) L 11/02/17 19:45 ABG pH 7.03 (7.35-7.45) L* 11/02/17 19:45 ABG Total CO2 26.2 mmol/L (22-28) 11/02/17 19:45 ABG O2 Saturation 86.7 % (95-98) L 11/02/17 19:45 ABG Base Excess -9.2 mmol/L (-2.0-3.0) L 11/02/17 19:45 Main Test Na 03/08/18 19:45 ABG Potassium 7.1 mmol/L (3.6-5.2) H* 11/02/17 19:45 Sodium 140.0 mmol/l (132-148) 11/02/17 19:45 Chloride 111.0 mmol/L (98-107) H 11/02/17 19:45 Glucose 86 mg/dl (65-105) 11/02/17 19:45 Lactate 0.4 mmol/L (0.7-2.1) L 11/02/17 19:45 Liter Flow 2.0 11/02/17 19:45 Crit Value Called To [facility] 11/02/17 19:45 Crit Value Called By Joe 11/02/17 19:45 Crit Value Read Back Y 11/02/17 19:45 Blood Gas Notified Time 194711/02/17 19:45 Sodium 144 mmol/L (132-148) 11/03/17 06:20 Potassium 4.9 mmol/L (3.6-5.2) 11/03/17 06:20 Chloride 113 mmol/L (98-107) H 11/03/17 06:20 Carbon Dioxide 22 mmol/L (22-30) 11/03/17 06:20 Anion Gap 14 (10-20) 11/03/17 06:20 BUN 52 mg/dL (7-17) H 11/03/17 06:20 Creatinine 1.7 mg/dL (0.7-1.2) H 11/03/17 06:20 Est GFR ( Amer) 38 11/03/17 06:20 Est GFR (Non-Af Amer) 32 11/03/17 06:20 POC Glucose (mg/dL) 94 mg/dL (65-110) 11/03/17 12:00 Random Glucose 88 mg/dL (65-105) 11/03/17 06:20 Lactic Acid 0.6 mmol/L (0.7-2.1) L 11/03/17 05:09 Calcium 7.6 mg/dl (8.6-10.4) L 11/03/17 06:20 Total Bilirubin 0.3 mg/dL (0.2-1.3) 11/03/17 06:20 AST 57 U/L (14-36) H D 11/03/17 06:20 ALT 54 U/L (9-52) H 11/03/17 06:20 Alkaline Phosphatase 67 U/L (38-126) 11/03/17 06:20 Ammonia 14 umol/L (9-33) 11/02/17 20:01 Total Creatine Kinase 61 U/L (30-135) 11/02/17 11:40 CK-MB (Mass) 0.89 ng/mL (0.0-3.38) 11/02/17 11:40 Troponin I 0.0460 ng/mL (0.00-0.120) 11/02/17 20:01 NT-Pro-B Natriuret Pep 1740 pg/mL (0-900) H 11/02/17 20:01 Total Protein 5.6 g/dL (6.3-8.3) L 11/03/17 06:20 Albumin 2.7 g/dL (3.5-5.0) L 11/03/17 06:20 Globulin 2.9 gm/dL (2.2-3.9) 11/03/17 06:20 Albumin/Globulin Ratio 0.9 (1.0-2.1) L 11/03/17 06:20 TSH 3rd Generation 1.37 mIU/L (0.46-4.68) 11/02/17 20:01 Arterial Blood Potassium 7.1 mmol/L (3.6-5.2) H* 11/02/17 19:45 Urine Color Yellow (YELLOW) 11/02/17 16:03 Urine Clarity Hazy (Clear) 11/02/17 16:03 Urine pH 5.0 (5.0-8.0) 11/02/17 16:03 Ur Specific [place] 1.017 (1.003-1.030) 11/02/17 16:03 Urine Protein 2+ mg/dL (NEGATIVE) H 11/02/17 16:03 Urine Glucose (UA) Normal mg/dL (Normal) 11/02/17 16:03 Urine Ketones Negative mg/dL (NEGATIVE) 11/02/17 16:03 Urine Blood Negative (NEGATIVE) 11/02/17 16:03 Urine Nitrate Negative (NEGATIVE) 11/02/17 16:03 Urine Bilirubin Negative (NEGATIVE) 11/02/17 16:03 Urine Urobilinogen Normal mg/dL (0.2-1.0) 11/02/17 16:03 Ur Leukocyte Esterase Trace [place]/uL (Negative) 11/02/17 16:03 Urine WBC (Auto) 25 /hpf (0-5) H 11/02/17 16:03 Urine RBC (Auto) 8 /hpf (0-3) H 11/02/17 16:03 Ur Squamous Epith Cells < 1 /hpf (0-5) 11/02/17 16:03 Urine Bacteria Many (<OCC) H 11/02/17 16:03 Hyaline Casts 6-10 /lpf (0-2) H 11/02/17 16:03 Salicylates < 1.0 mg/dL 1 11/02/17 11:40 Urine Opiates Screen Positive (NEGATIVE) H 11/02/17 16:03 Urine Methadone Screen Negative (NEGATIVE) 11/02/17 16:03 Acetaminophen 12.0 ug/mL (10.0-30.0) 11/02/17 11:40 Ur Barbiturates Screen Negative (NEGATIVE) 11/02/17 16:03 Ur Phencyclidine Scrn Negative (NEGATIVE) 11/02/17 16:03 Ur Amphetamines Screen Negative (NEGATIVE) 11/02/17 16:03 U Benzodiazepines Scrn Positive (NEGATIVE) H 11/02/17 16:03 U Oth Cocaine Metabols Negative (NEGATIVE) 11/02/17 16:03 U Cannabinoids Screen Negative (NEGATIVE) 11/02/17 16:03 Alcohol, Quantitative < 10 mg/dl (0-10) 11/02/17 11:40 - Hospital Course Hospital Course: Upon hospital admission: Patient is a 52 year old female with a past medical history of chronic pain, substance abuse, Anxiety, Arthritis, Asthma, Emphysema , HTN, Hypercholesterolemia and Hypothyroidism presenting to the emergency room after patient was found to not be breathing by her . Patient took her prescribed 3x 5/325mg percocet and 3x 2mg xanax this morning then went back to bed. When the went to wake patient up for her doctor's appointment, the found the patient with her tongue swallowed and starting to turn blue. The got a spoon and attempted to pull the tongue forward. He then called 911 and began to give rescue breaths. Upon arrival, ems gave patient 2 doses of narcan. Patient became slightly arousable but shortly fell back asleep. ROS is unattainable due to patient's mental status, currently only arousable to sternal rub. PMH: chronic pain, substance abuse, Anxiety, Arthritis, Asthma, Emphysema, HTN, Hypercholesterolemia and Hypothyroidism PSH: unknown Family: unknown Social: Per chart review, no tobacco, quit alcohol in 2008 --- During hospital course, the patient was evaluated and treated for the following : Hypercapneic respriatory failure: Overdose - Opioids/Benzos ICU consulted, Dr. Mana Portillo - patient accepted to ICU Psych consulted, Dr. Schafer rec's appreciated. Per patient's , pt took 3x 5/325mg percocet and 3x 2mg xanax Patient received 2 doses of Narcan in the field - woke up then regressed to lethargy Patient received 2mg of Narcan in ED - woke up then regressed back to lethargy ABG pH 7.00, pCO2 103, pO2 82, HCO3 18.2, Lactate 0.6 upon admission. NS @50ml/hr neurochecks Infectious Disease: Leukocytosis Urine culture prelim results: Gram negative rods. WBC 14.8 today. Patient remains afebrile. Continue Moxifloxacin 400mg Q24. Continue to monitor white count with serial CBC's. Endocrinology:h/o of Hypothryoidisim Levothyroxine 25mcg PO Daily ---- The patient did well during this admission, responded well to treatment, and was deemed stable for discharge by Psychiatry and the ICU team. However, the patient was not officially discharged from the hospital. He left AMA at 5pm on . This is a summary of the patient's hospital admission, see chart for comprehensive detail. - Date & Time of H&P Date of H&P: 11/02/17 Time of H&P: 20:46 Discharge Exam - Additional Findings Additional findings: The patient was not seen by this physician as he left AMA at 5pm on 11/03/17. Discharge Plan - Follow Up Plan Condition: STABLE Disposition: AGAINST MEDICAL ADVICE
[2017-11-06 16:54] LABS: OXYCODONE SCREEN POSITIVE
== END 2017-11-03 16:58 | disposition left against medical advice (07) | DRG 918 ==
LOC: C.ER 10:22 → C.9E 16:37 → C.6T 17:53 → C.9I 20:30
PROVIDERS: ADMIT Internal Medicine; ATTEND Internal Medicine
DX: T40.2X1A Poisoning by other opioids, accidental (unintentional), initial encounter (principal); I95.9 Hypotension, unspecified; R56.9 Unspecified convulsions; D72.829 Elevated white blood cell count, unspecified; R40.0 Somnolence; E03.9 Hypothyroidism, unspecified; I10 Essential (primary) hypertension; J43.9 Emphysema, unspecified; F41.9 Anxiety disorder, unspecified; K59.00 Constipation, unspecified; E78.00 Pure hypercholesterolemia, unspecified; G89.29 Other chronic pain; F17.210 Nicotine dependence, cigarettes, uncomplicated; Y92.009 Unspecified place in unspecified non-institutional (private) residence as the place of occurrence of the external cause; Z91.013 Allergy to seafood; Z88.0 Allergy status to penicillin; Z88.8 Allergy status to other drugs, medicaments and biological substances

== ENCOUNTER 2018-04-28 20:29 | Emergency (ER) | payer OTHER ==
[2018-04-28 20:29] VITALS: BMI 32.3
[2018-04-28 20:50] VITALS: RESP 18; TEMP 98.1
[2018-04-28] MEDS ORDERED: Sodium Chloride 0.9% 1,000 ML IV ONE (21:06)
--- NOTE | 2018-04-28 21:07 | C.PDOC ---
History Of Present Illness 53 year old female presents to the ED c/o headache for the past few days. Patient states she used to take Imitrix but did not take it today because she was coming to the Hospital. Patient also c/o generalized body aches for the pat few days as well. Patient is asking for pain medications. Patient reports having a history of torn meniscus in her knee. Patient denies fever, chills, nausea, vomit, diarrhea, weakness, numbness. Chief Complaint (Nursing): Medical Clearance History Per: Patient History/Exam Limitations: no limitations Onset/Duration Of Symptoms: Days Current Symptoms Are (Timing): Still Present Recent travel outside of the [place]: No Additional History Per: Patient Past Medical History Reviewed: Historical Data, Nursing Documentation, Vital Signs Vital Signs: Last Vital Signs Temp 98.1 F 04/28/18 20:45 Pulse 84 04/28/18 20:45 Resp 18 04/28/18 20:45 BP 119/84 04/28/18 20:45 Pulse Ox 98 04/28/18 21:13 - Medical History PMH: Anxiety, Arthritis, Asthma, Emphysema, HTN, Hypercholesterolemia, Hypothyroidism Denies: Chronic Kidney Disease Surgical History: Appendectomy - [facility] Procedures CLOSED [ENDOSCOPIC] BIOPSY OF LARYNX (03/06/02) CONTINUOUS INVASIVE MECHANICAL VENTILATION <96 CONSEC HRS (05/03/15) INSERT ENDOTRACHEAL TUBE (05/03/15) Family History: States: Unknown Family Hx - Social History Hx Tobacco Use: No Hx Alcohol Use: No Hx Substance Use: Yes (OPIATE BENZO ABUSE H/O) - Immunization History Hx Tetanus Toxoid Vaccination: No Hx Influenza Vaccination: Yes Hx Pneumococcal Vaccination: Yes Review Of Systems Constitutional: Positive for: Malaise. Negative for: Fever, Chills Cardiovascular: Negative for: Chest Pain Respiratory: Negative for: Cough, Shortness of Breath Gastrointestinal: Negative for: Nausea, Vomiting Skin: Negative for: Rash Neurological: Positive for: Headache. Negative for: Weakness, Numbness, Dizziness Physical Exam - Physical Exam Appears: Non-toxic, No Acute Distress Skin: Normal Color, Warm, Dry Head: Atraumatic, Normacephalic Eye(s): bilateral: Normal Inspection Neck: Normal ROM, No Midline Cervical Tenderness, Supple Chest: Symmetrical Cardiovascular: Rhythm Regular Respiratory: Normal Breath Sounds, No Rales, No Rhonchi, No Wheezing Gastrointestinal/Abdominal: Soft, No Tenderness, No Guarding, No Rebound Extremity: Normal ROM, No Tenderness, No Swelling Neurological/Psych: Oriented x3, Normal Speech, Normal Motor, Normal Sensation, Other (no focal deficits) Gait: Steady ED Course And Treatment - Laboratory Results Result Diagrams: 04/28/18 21:56 04/28/18 21:56 O2 Sat by Pulse Oximetry: 98 (ON RA) Pulse Ox Interpretation: Normal Medical Decision Making Medical Decision Making: Plan: * CT head * Labs * Imitrex 6 mg SC * IV fluids * Ultram 50 mg PO * UA Disposition Counseled Patient/Family Regarding: Diagnosis - Disposition Referrals: [facility] [Outside] Disposition: HOME/ ROUTINE Disposition Time: 00:37 Condition: STABLE Prescriptions: traMADol/Acetaminophen [Ultracet 325 MG-37.5 MG] 1 tab PO Q6 #10 tab Instructions: Migraine Headaches in Adults Forms: [facility] (Danish) - POA Present On Arrival: None - Clinical Impression Clinical Impression: Migraine, Cephalgia - Scribe Statement The provider has reviewed the documentation as recorded by the Scribe Rai Munoz All medical record entries made by the Scribe were at my direction and personally dictated by me. I have reviewed the chart and agree that the record accurately reflects my personal performance of the history, physical exam, medical decision making, and the department course for this patient. I have also personally directed, reviewed, and agree with the discharge instructions and disposition.
--- NOTE | 2018-04-28 21:10 | C.PDOC ---
Chief Complaint (Nursing): Medical Clearance Past Medical History Vital Signs: Last Vital Signs Temp 98.1 F 04/28/18 20:45 Pulse 84 04/28/18 20:45 Resp 18 04/28/18 20:45 BP 119/84 04/28/18 20:45 Pulse Ox 98 04/28/18 20:45 - Medical History PMH: Anxiety, Arthritis, Asthma, Emphysema, HTN, Hypercholesterolemia, Hypothyroidism Denies: Chronic Kidney Disease Surgical History: Appendectomy - [facility] Procedures CLOSED [ENDOSCOPIC] BIOPSY OF LARYNX (03/06/02) CONTINUOUS INVASIVE MECHANICAL VENTILATION <96 CONSEC HRS (05/03/15) INSERT ENDOTRACHEAL TUBE (05/03/15) Family History: States: Unknown Family Hx - Social History Hx Tobacco Use: No Hx Alcohol Use: No Hx Substance Use: Yes (OPIATE BENZO ABUSE H/O) - Immunization History Hx Tetanus Toxoid Vaccination: No Hx Influenza Vaccination: Yes Hx Pneumococcal Vaccination: Yes ED Course And Treatment O2 Sat by Pulse Oximetry: 98 Disposition - Disposition
[2018-04-28] MEDS ORDERED: Sodium Chloride 0.9% 1,000 ML ONE (21:28)
[2018-04-28 21:59] LABS: BASO # 0.1 K/uL (0.0-0.2); BASO % 1.4 % (0.0-2.0); EOS # 0.4 K/uL (0.0-0.7); EOS % 4.2 % (0.0-4.0); HEMOGLOBIN 10.6 g/dL (11.0-16.0); LYMPH % 32.9 % (20.0-40.0); MEAN CELL VOLUME 89.6 fL (81.0-99.0); MEAN CORPUSCULAR HEMOGLOBIN 30.5 pg (27.0-31.0); MEAN PLATELET VOLUME 9.3 fL (7.2-11.7); MONO # 0.5 K/uL (0.0-0.8); MONO % 5.1 % (0.0-10.0); NEUT # 5.2 K/uL (1.8-7.0); NEUT % 56.4 % (50.0-75.0); NRBC % 0.1 % (0.0-2.0); RBC 3.48 Mil/uL (3.80-5.20); RED CELL DISTRIBUTION WIDTH 14.2 % (11.5-14.5); WHITE BLOOD COUNT 9.2 K/uL (4.8-10.8)
[2018-04-28 22:16] LABS: CALCIUM 8.2 mg/dl (8.6-10.4); GFR NON-AFRICAN AMERICAN > 60
[2018-04-28 22:20] LABS: ALBUMIN 3.2 g/dL (3.5-5.0); ALT/SGPT 14 U/L (9-52); AST/SGOT 36 U/L (14-36); BLOOD UREA NITROGEN 18 mg/dL (7-17)
[2018-04-28 23:09] LABS: SQUAMOUS EPITHIAL 3 /hpf (0-5); URINE BACTERIA MOD (<OCC); URINE BILIRUBIN NEGATIVE (NEGATIVE); URINE BLOOD NEGATIVE (NEGATIVE); URINE CLARITY Hazy (Clear); URINE COLOR Yellow (YELLOW); URINE GLUCOSE (UA) NORMAL (Normal); URINE LEUKOCYTE ESTERASE 2+ Leu/uL (Negative); URINE PROTEIN 3+ mg/dL (NEGATIVE); URINE UROBILINOGEN NORMAL mg/dL (0.2-1.0)
[2018-04-28 23:33] LABS: BARBITURATES, UR NEGATIVE (NEGATIVE); OPIATES, UR NEGATIVE (NEGATIVE); PHENCYCLIDINE, UR NEGATIVE (NEGATIVE)
[2018-04-28 23:35] LABS: BENZODIAZEPINES, UR POSITIVE (NEGATIVE)
[2018-04-29 01:10] VITALS: BP 136/82; PULSE 65; O2SAT 99
--- NOTE | 2018-04-29 12:32 | CT ---
Date of service: 04/28/2018 PROCEDURE: CT HEAD WITHOUT CONTRAST. HISTORY: COMPARISON: Comparison made with prior CT scan brain 11/02/2017 TECHNIQUE: Axial computed tomography images were obtained through the head/brain without intravenous contrast. Radiation dose: Total exam DLP = 919.46 mGy-cm. This CT exam was performed using one or more of the following dose reduction techniques: Automated exposure control, adjustment of the mA and/or kV according to patient size, and/or use of iterative reconstruction technique. FINDINGS: HEMORRHAGE: No acute parenchymal, subarachnoid or extra-axial hemorrhage. Hemorrhage. BRAIN: There appears to be some very minimal diffuse/confluent chronic periventricular white matter ischemic changes. Questionable few tiny chronic appearing bilateral basal nuclei lacunar type infarcts on versus artifact. . No obvious parenchymal nor extra-axial mass or collection seen on this noncontrast exam. Mild age-appropriate volume loss. VENTRICLES: No obstructive hydrocephalus. CALVARIUM: Calvarium intact. There may be some minimal soft tissue swelling both inferior eyelids. PARANASAL SINUSES: Unremarkable as visualized. No significant inflammatory changes. MASTOID AIR CELLS: Unremarkable as visualized. No inflammatory changes. OTHER FINDINGS: Note made of small calcifications along both posterior globes. Ophthalmologic/ fundoscopic examination recommended for further evaluation. IMPRESSION: No acute intracranial hemorrhage. Minor chronic periventricular white matter ischemic changes with questionable few chronic bilateral basal nuclei lacunar type infarcts. Mild age-appropriate volume loss. There are small calcifications within both posterior globes of uncertain etiology. Recommend followup of ophthalmologic/ fundoscopic examination. Note that this report was placed in [place] review folder followup.
== END 2018-04-29 01:09 | disposition home or self-care (01) ==
LOC: C.ER 20:29
DX: G43.909 Migraine, unspecified, not intractable, without status migrainosus (principal)
CPT/HCPCS: 70450; 80053; 81001; 82550; 85025; 87086; 87181; 96372; 99283; G0480; J3030; J7030